=== PATIENT | male | born 1945 | race Caucasian/White ===

== ENCOUNTER 2017-04-05 07:48 | Inpatient (IN) | payer MEDICARE ==
[~2017-04-05] VITALS: Ht 177.8 cm; Wt 96.6 kg
--- NOTE | 2017-04-05 08:37 | EKG ---
[facility] [address] [place] [address] Test Date: 2017-04-05 Test Time: 08:41:16 Pat Name: MARIANNE HAND Department: Room: Gender: Baseball Coach: : 1945 Requested By: COLLETTE FLORES Order Number: [id number] Reading MD: Kaushik Hameed Measurements Intervals Lutz Rate: 99 P: 50 FL: 154 QRS: 38 QRSD: 96 T: 43 QT: 350 QTc: 455 Interpretive Statements SINUS RHYTHM VENTRICULAR PREMATURE COMPLEX(ES) LEFT ATRIAL ABNORMALITY ABNORMAL ECG RI6.01 No previous ECG available for comparison Electronically Signed On 04-14-2017 12:50:20 CDT by Kaushik Hameed
[2017-04-05] MEDS ORDERED: LIDOCAINE 2% PF Vial for OR 5 ML VIAL. ONE (08:56)
[2017-04-05] MEDS ORDERED: PROPOFOL 40 ML IV ONE (08:56)
[2017-04-05] MEDS ORDERED: ePHEDrine PF IN SALINE 50 MG/5 ML DISP.SYRIN IV ONE (08:57)
--- NOTE | 2017-04-05 09:01 | RAD ---
EXAM: Chest, single view. HISTORY: Shortness of breath. COMPARISON: None. FINDINGS: A frontal view of the chest is obtained. There is diffuse right lower lobe predominant interstitial infiltrate. There is a suspected small right pleural effusion. There is right hemithorax volume loss with rightward mediastinal shift. The heart is mildly enlarged. There is no pneumothorax. IMPRESSION: 1. Diffuse interstitial infiltrate likely due to congestion. The possibility of superimposed right lower lobe pneumonic infiltrate is not excluded. 2. Suspected small right pleural effusion. 3. Suspected mild right hemithorax volume loss. 4. Mild cardiomegaly.
[2017-04-05] MEDS ORDERED: OMEG1CAP6 PO (11:26)
[2017-04-05] MEDS ORDERED: ASPI325T8 PO (11:26)
[2017-04-05] MEDS ORDERED: ATOR20TA58 PO (11:26)
[2017-04-05] MEDS ORDERED: AMLO10TA2 PO (11:26)
[2017-04-05] MEDS ORDERED: ALPR0.5T6 PO (11:26)
[2017-04-05] MEDS ORDERED: ROPI1TAB PO (11:26)
[2017-04-05] MEDS ORDERED: CLON0.5T3 PO (11:26)
[2017-04-05] MEDS ORDERED: ZOLP5TAB5 PO (11:26)
[2017-04-05] MEDS ORDERED: LISI40TA PO (11:26)
[2017-04-05] MEDS ORDERED: MONT10TA6 PO (11:26)
[2017-04-05] MEDS ORDERED: SERT50TA PO (11:26)
[2017-04-05] MEDS ORDERED: MIRT30TA3 PO (11:26)
[2017-04-05 12:32] VITALS: BP 134/81
[2017-04-05] MEDS ORDERED: 0.9 % SODIUM CHLORIDE 10 ML DISP.SYRIN. IV PRN (14:30)
[2017-04-05] MEDS ORDERED: ONDANSETRON PF 4 MG/2 ML VIAL. IV PRN (14:30)
[2017-04-05] MEDS ORDERED: rOPINIRole 1 MG TABLET. PO PRN (14:30)
[2017-04-05] MEDS ORDERED: ACETAMINOPHEN 325 MG TABLET. PO PRN (14:30)
[2017-04-05] MEDS: MIRTAZAPINE 15 MG TABLET PO SCH ×2 (15:00→15:58)
--- NOTE | 2017-04-05 15:34 | PDOC2 ---
CARDIAC CONSULT DATE OF CONSULT Date of Consult DATE: 04/05/17 TIME: 15:32 REASON FOR CONSULT Reason for Consult: Arrhythmia REFERRING PHYSICIAN Referring Physician: Fly SOURCE Source: Chart review, Patient HISTORY OF PRESENT ILLNESS HISTORY OF PRESENT ILLNESS This is a pleasant 71 yo male admitted for noted fast HR prior to colonoscopy. Per review he was noted with possible AFIB but per my review it appears to be PSVT otherwise SR. Reports no prior hx of arrhythmia. No CAD in the past with remote stress test. Denies any COPD but positive for clubbing and 50 pk yr tobacco use. He also has hx of KAYE features such as PND and snoring per his previous . He has preDM, HLP, HTN and takes daily ASA. He had bowel prep last night for routine colonoscopy and was postponed due to his rhyhtm disturbance. In the last yr he has been steadily getting WEBBER and sometimes with palpitations and dizziness but no CP, nausea, or diaphoresis. He is compliant with his medications otherwise. PAST MEDICAL HISTORY Cardiovascular: HTN, Hyperlipidemia Pulmonary: No pertinent hx CENTRAL NERVOUS SYSTEM: Periperal neuropathy, Other GI: Other (colon polyps) Heme/Onc: No pertinent hx Hepatobiliary: No pertinent hx Psych: Anxiety, Depression (PTSD) Musculoskeletal: Osteoarthritis Rheumatologic: No pertinent hx Infectious disease: No pertinent hx ENT: Other (cataract) Renal/: No pertinent hx Endocrine: Diabetes (pre) Dermatology: No pertinent hx PAST SURGICAL HISTORY Past Surgical History: Tonsillectomy, Other (LRTC repair) FAMILY HISTORY Family History: Coronary Artery Disease (father) SOCIAL HISTORY Smoke: 1 pack per day ALCOHOL: none Drugs: None Lives: with Family ALLERGIES ALLERGIES: Coded Allergies: Penicillins (Verified Allergy, Severe, 04/04/17) bupropion (Verified Allergy, Intermediate, RESTLESS LEG, 04/05/17) buspirone (Verified Allergy, Intermediate, RESTLESS LEG, 04/05/17) escitalopram (Verified Allergy, Intermediate, RESTLESS LEG, 04/05/17) fluticasone (Verified Allergy, Intermediate, RESTLESS LEG, 04/05/17) mirtazapine (Verified Allergy, Intermediate, RESTLESS LEG, 04/05/17) nortriptyline (Verified Allergy, Intermediate, RESTLESS LEG, 04/05/17) oxycodone (Verified Allergy, Intermediate, RESTLESS LEG, 04/05/17) paroxetine (Verified Allergy, Intermediate, RESTLESS LEG, 04/05/17) sertraline (Verified Allergy, Intermediate, RESTLESS LEG, 04/05/17) venlafaxine (Verified Allergy, Intermediate, RESTLESS LEG, 04/05/17) fluoxetine (Verified Allergy, Unknown, RESTLESS LEG, 04/05/17) Uncoded Allergies: FLUOSETINE/OLENZAPINE (Allergy, Intermediate, RESTLESS LEG, 04/05/17) ROS Review of System 14 point ROS evaluated with pertinent positives noted per HPI PHYSICAL EXAM General: Alert, Oriented X3, Cooperative, No acute distress HEENT: Atraumatic, Mucous membr. moist/pink Lungs: Other (diminished bases) Heart: Regular rate (SR), Normal S1, Normal S2, Other (distant heart sounds) Extremities: No cyanosis, No edema Skin: No breakdown, No significant lesion Neuro: Normal speech, Sensation intact Psych/Mental Status: Mental status NL, Mood NL MUSCULOSKELETAL: Osteoarthritic changes both hands VITALS VITALS Vital Signs Date Time Temp Pulse Resp B/P (MAP) Pulse Ox O2 Delivery O2 Flow Rate FiO2 04/05/17 12:32 97.8 90 16 134/81 (98) 94 Nasal Cannula 2.0 97.8 LABS Lab: Laboratory Tests Test 04/05/17 14:50 Troponin I Quantitative < 0.017 ng/mL (0.000-0.055) ASSESSMENT/PLAN ASSESSMENT/PLAN 1. 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 No AFIB. Suspect due to F & E shifts. 2. WEBBER/Palpitations: suspect undiagnosed COPD with associated clubbing 3. Suspecting KAYE and pulmonary HTN 4. Hx of colon polyps: bowel prep for outpt colonoscopy postponed due to arrhythmia 5. HTN: controlled 6. HLP Recommendations 1. Maintain adequate po hydration, replace lytes as warranted 2. CMP, Mg, TSH, and lipids today 3. TTE 4. Continue home BP meds. 5. Discussed treament plan and will do outpt event monitoring. 6. Monitor tele overnight, continue with secondary prevention 7. COPD mgmt per PCP Problems: PALMA EPPS APRN Apr 05, 2017 15:34
[2017-04-05] MEDS: ASPIRIN CHEWABLE 81 MG TABLET. PO SCH (15:50)
[2017-04-05] MEDS: IV 1/2 NORMAL SALINE 1,000 ML IV SCH (15:50)
[2017-04-05] MEDS: OMEGA-3 FATTY ACIDS/FISH OIL 1,000 MG CAPSULE. PO SCH (15:54)
[2017-04-05] MEDS: amLODIPine BESYLATE 10 MG TABLET PO SCH (15:56)
[2017-04-05] MEDS: LISINOPRIL 40 MG TABLET. PO SCH (15:58)
[2017-04-05] MEDS: NICOTINE 21MG PATCH. TD SCH (15:59)
[2017-04-05] MEDS: SERTRALINE 50 MG TABLET. PO SCH (15:59)
[2017-04-05] MEDS: ENOXAPARIN 40 MG/0.4 ML SYRINGE. SQ SCH (15:59)
[2017-04-05] MEDS: ALPRAZolam 0.5 MG TABLET PO PRN (16:07)
[2017-04-05 17:46] LABS: BASO # 0.1 x10^3/uL (0.0-0.2); BASO % 1 % (0-3); EOS % 2 % (0-3); HEMOGLOBIN 16.3 g/dL (13.0-17.5); LYMPH # 4.2 x10^3/uL (1.0-4.8); LYMPH % 38 % (24-48); MEAN CORPUSCULAR HEMOGLOBIN 31 pg (25-35); MEAN CORPUSCULAR HGB CONC 33 g/dL (31-37); MEAN CORPUSCULAR VOLUME 93 fL (79-100); MONO % 10 % (0-9); NEUT % 50 % (31-73); PLATELET COUNT 214 x10^3/uL (140-400); RED BLOOD COUNT 5.28 x10^6/uL (4.30-5.70); RED CELL DISTRIBUTION WIDTH 14.2 % (11.5-14.5); WHITE BLOOD COUNT 10.9 x10^3/uL (4.0-11.0)
[2017-04-05 17:57] LABS: ALBUMIN 3.1 g/dL (3.4-5.0); ALBUMIN/GLOBULIN RATIO 0.7 (1.0-1.7); CALCIUM 8.8 mg/dL (8.5-10.1); CREATININE 1.2 mg/dL (0.7-1.3); GFR 59.5; MAGNESIUM 1.8 mg/dL (1.8-2.4); POTASSIUM 3.4 mmol/L (3.5-5.1); TOTAL BILIRUBIN 0.6 mg/dL (0.2-1.0); TOTAL PROTEIN 7.5 g/dL (6.4-8.2)
[2017-04-05 17:59] LABS: CHOLESTEROL/HDL RATIO 4.6
[2017-04-05] MEDS ORDERED: POTASSIUM CHLORIDE 20 MEQ TABLET.ER. PO ONE (18:30)
[2017-04-05 19:17] VITALS: BP 116/70
--- NOTE | 2017-04-05 19:54 | HP ---
ADMIT DATE: 04/05/2017 CHIEF COMPLAINT: Arrhythmia. HISTORY OF PRESENT ILLNESS: The patient is a 71-year-old gentleman who was scheduled to undergo a routine colonoscopy today. However, in the endoscopy suite, he was noted to have tachycardia, initially thought to be AFib. He was therefore direct admitted to the medical service for further workup and monitoring. The patient relates that he never had any heart issues, although does have hypertension and hyperlipidemia. He himself is unable to tell. Denies any palpitations, shortness of breath, chest pain or other symptoms. He does have positive COPD and easily is short of breath as he is continuing to smoke cigarettes. PAST MEDICAL HISTORY: Hypertension, hyperlipidemia, COPD, osteoarthritis, diabetes mellitus, PTSD, depression. FAMILY HISTORY: Positive for CAD in father. SOCIAL HISTORY: Lives with his , continues to smoke 1 pack a day for the past 55 years. Denies any alcohol or drug use. ALLERGIES: Multiple including PENICILLIN, OXYCODONE and pretty much any ANTIDEPRESSANT available. MEDICATIONS: MAR reconciled with home medications. REVIEW OF SYSTEMS: Positive as per HPI. Rest of organ system review is negative. PHYSICAL EXAMINATION: VITAL SIGNS: From today show a blood pressure of 134/81, heart rate of 90, respiratory rate at 16. He is afebrile. GENERAL: This is a 71-year-old gentleman, obese, alert and oriented, no acute distress. HEENT: Shows no scleral icterus. NECK: Supple. LUNGS: Clear with distant breath sounds. HEART: Has regular rate and rhythm without any murmurs. ABDOMEN: Obese, positive bowel sounds, soft, nontender. EXTREMITIES: Show no edema. SKIN: Warm, soft and dry. LABS: Pending. IMAGING: Chest x-ray this morning showed diffuse interstitial infiltrate, likely due to congestion, possibility of right lower lobe pneumonic infiltrate not excluded, small right pleural effusion, mild cardiomegaly. ASSESSMENT AND PLAN: The patient is a 71-year-old gentleman with chronic obstructive pulmonary disease, hypertension, hyperlipidemia who presents with some type of arrhythmia. On my review, it does not appear to be atrial fibrillation; however, we will obtain Cardiology consult BRITNEY. He will be ruled out with serial enzymes and EKG. We will risk stratify with lipid profile as well as hemoglobin A1c. Obtain other labs as well. Echocardiogram and Cardiology consults have been requested. For his diabetes, home medications will be continued as well as insulin sliding scale instituted. The patient more than likely has COPD and is scheduled to follow up with a chest x-ray with his PCP at the [place]. I discussed with him that with his significant smoking history, a low dose CT should be obtained. He is somewhat resistant as he feels that risk of false positive is high. Discussed the implications with him. He apparently has lung disease, underlying as well given the findings on his chest x-ray. He would like to hold off on a CT now and discuss [facility]. Obviously discussed smoking cessation with him at length as well. TUSHAR KAY MD DR: UR/nts JOB#: [id number] / [id number] WILFRIDO Thornton MD MTDD
[2017-04-05] MEDS: IBUPROFEN 400 MG TABLET. PO PRN (20:35)
[2017-04-05] MEDS: ASPIRIN 325 MG TABLET PO SCH (21:22)
[2017-04-05] MEDS: ZOLPIDEM 5 MG TABLET. PO PRN (21:22)
[2017-04-05] MEDS: MONTELUKAST SODIUM 10 MG TABLET. PO SCH (21:22)
[2017-04-05] MEDS: ATORVASTATIN CALCIUM 20 MG TABLET PO SCH (21:22)
[2017-04-05 22:09] VITALS: BP 115/66
[2017-04-06 03:48] VITALS: BP 121/70
[2017-04-06 07:00] VITALS: BP 137/77
[2017-04-06 07:14] LABS: ALBUMIN 2.8 g/dL (3.4-5.0); ALBUMIN/GLOBULIN RATIO 0.7 (1.0-1.7); CALCIUM 8.5 mg/dL (8.5-10.1); CREATININE 1.2 mg/dL (0.7-1.3); GFR 59.5; POTASSIUM 3.7 mmol/L (3.5-5.1); TOTAL BILIRUBIN 0.3 mg/dL (0.2-1.0); TOTAL PROTEIN 7.1 g/dL (6.4-8.2)
[2017-04-06 07:16] LABS: BASO # 0.1 x10^3/uL (0.0-0.2); BASO % 1 % (0-3); EOS % 2 % (0-3); HEMATOCRIT 46.3 % (39.0-53.0); HEMOGLOBIN 15.7 g/dL (13.0-17.5); LYMPH # 3.6 x10^3/uL (1.0-4.8); LYMPH % 37 % (24-48); MEAN CORPUSCULAR HEMOGLOBIN 31 pg (25-35); MEAN CORPUSCULAR HGB CONC 34 g/dL (31-37); MEAN CORPUSCULAR VOLUME 91 fL (79-100); MONO % 11 % (0-9); NEUT % 50 % (31-73); PLATELET COUNT 197 x10^3/uL (140-400); RED BLOOD COUNT 5.07 x10^6/uL (4.30-5.70); RED CELL DISTRIBUTION WIDTH 14.1 % (11.5-14.5)
[2017-04-06] MEDS: NICOTINE 21MG PATCH. TD SCH (08:28)
[2017-04-06] MEDS: SERTRALINE 50 MG TABLET. PO SCH (08:30)
[2017-04-06] MEDS: LISINOPRIL 40 MG TABLET. PO SCH (08:30)
[2017-04-06] MEDS: OMEGA-3 FATTY ACIDS/FISH OIL 1,000 MG CAPSULE. PO SCH (08:31)
[2017-04-06] MEDS: MIRTAZAPINE 15 MG TABLET PO SCH (08:31)
[2017-04-06] MEDS: amLODIPine BESYLATE 10 MG TABLET PO SCH (08:31)
[2017-04-06] MEDS: ASPIRIN CHEWABLE 81 MG TABLET. PO SCH (08:35)
[2017-04-06 11:00] VITALS: BP 103/61
--- NOTE | 2017-04-06 11:47 | PDOC ---
CARDIO Progress Notes Date and Time Date of Service 04/06/2017 Time of Evaluation 1040 Subjective Subjective: No Chest Pain, No shortness of breath, No Palpitations, No Dizziness Vitals Vitals Vital Signs Date Time Temp Pulse Resp B/P (MAP) Pulse Ox O2 Delivery O2 Flow Rate FiO2 04/06/17 08:31 88 137/77 04/06/17 08:00 Nasal Cannula 2.0 04/06/17 07:00 98.3 19 93 98.3 Weight Weight [ ] Laboratory Labs Laboratory Tests Test 04/05/17 14:50 04/05/17 17:25 04/05/17 20:25 04/06/17 04:50 White Blood Count 10.9 x10^3/uL (4.0-11.0) 10.0 x10^3/uL (4.0-11.0) Red Blood Count 5.28 x10^6/uL (4.30-5.70) 5.07 x10^6/uL (4.30-5.70) Hemoglobin 16.3 g/dL (13.0-17.5) 15.7 g/dL (13.0-17.5) Hematocrit 49.0 % (39.0-53.0) 46.3 % (39.0-53.0) Mean Corpuscular Volume 93 fL (79-100) 91 fL (79-100) Mean Corpuscular Hemoglobin 31 pg (25-35) 31 pg (25-35) Mean Corpuscular Hemoglobin Concent 33 g/dL (31-37) 34 g/dL (31-37) Red Cell Distribution Width 14.2 % (11.5-14.5) 14.1 % (11.5-14.5) Platelet Count 214 x10^3/uL (140-400) 197 x10^3/uL (140-400) Neutrophils (%) (Auto) 50 % (31-73) 50 % (31-73) Lymphocytes (%) (Auto) 38 % (24-48) 37 % (24-48) Monocytes (%) (Auto) 10 % (0-9) 11 % (0-9) Eosinophils (%) (Auto) 2 % (0-3) 2 % (0-3) Basophils (%) (Auto) 1 % (0-3) 1 % (0-3) Neutrophils # (Auto) 5.4 x10^3uL (1.8-7.7) 4.9 x10^3uL (1.8-7.7) Lymphocytes # (Auto) 4.2 x10^3/uL (1.0-4.8) 3.6 x10^3/uL (1.0-4.8) Monocytes # (Auto) 1.1 x10^3/uL (0.0-1.1) 1.1 x10^3/uL (0.0-1.1) Eosinophils # (Auto) 0.2 x10^3/uL (0.0-0.7) 0.2 x10^3/uL (0.0-0.7) Basophils # (Auto) 0.1 x10^3/uL (0.0-0.2) 0.1 x10^3/uL (0.0-0.2) Sodium Level 139 mmol/L (136-145) 142 mmol/L (136-145) Potassium Level 3.4 mmol/L (3.5-5.1) 3.7 mmol/L (3.5-5.1) Chloride Level 103 mmol/L (98-107) 105 mmol/L (98-107) Carbon Dioxide Level 22 mmol/L (21-32) 28 mmol/L (21-32) Anion Gap 14 (6-14) 9 (6-14) Blood Urea Nitrogen 13 mg/dL (8-26) 18 mg/dL (8-26) Creatinine 1.2 mg/dL (0.7-1.3) 1.2 mg/dL (0.7-1.3) Estimated GFR (Cockcroft-Gault) 59.5 59.5 BUN/Creatinine Ratio 11 (6-20) 15 (6-20) Glucose Level 113 mg/dL (70-99) 111 mg/dL (70-99) Calcium Level 8.8 mg/dL (8.5-10.1) 8.5 mg/dL (8.5-10.1) Magnesium Level 1.8 mg/dL (1.8-2.4) 2.0 mg/dL (1.8-2.4) Total Bilirubin 0.6 mg/dL (0.2-1.0) 0.3 mg/dL (0.2-1.0) Aspartate Amino Transf (AST/SGOT) 29 U/L (15-37) 30 U/L (15-37) Alanine Aminotransferase (ALT/SGPT) 25 U/L (16-63) 27 U/L (16-63) Alkaline Phosphatase 109 U/L (46-116) 102 U/L (46-116) Troponin I Quantitative < 0.017 ng/mL (0.000-0.055) < 0.017 ng/mL (0.000-0.055) < 0.017 ng/mL (0.000-0.055) Total Protein 7.5 g/dL (6.4-8.2) 7.1 g/dL (6.4-8.2) Albumin 3.1 g/dL (3.4-5.0) 2.8 g/dL (3.4-5.0) Albumin/Globulin Ratio 0.7 (1.0-1.7) 0.7 (1.0-1.7) Triglycerides Level 160 mg/dL (0-150) Cholesterol Level 156 mg/dL (0-200) LDL Cholesterol, Calculated 90 mg/dL (0-100) VLDL Cholesterol, Calculated 32 mg/dL (0-40) Non-HDL Cholesterol Calculated 122 mg/dL (0-129) HDL Cholesterol 34 mg/dL (40-60) Cholesterol/HDL Ratio 4.6 Thyroid Stimulating Hormone (TSH) 1.307 uIU/mL (0.358-3.74) Physical Exam HEENT: Neck Supple W Full Motion Chest: Symmetric LUNGS: Other (diminished bases) Heart: S1S2, RRR (SR) Abdomen: Soft N/T Extremities: No Calf Tenderness Neurology: alert, oriented, follow commands Assessment Assessment 1. Arrhythmia: Burst of PSVT yesterday. Last night brief bursts of RVR atrial flutter 2. WEBBER/Palpitations: suspect undiagnosed COPD with associated clubbing with associated arrhythmia 3. Suspecting KAYE and pulmonary HTN 4. Hx of colon polyps: bowel prep for outpt colonoscopy postponed due to arrhythmia 5. HTN: controlled 6. HLP Recommendations 1. DC norvasc and start on cardizem CD 2. Continue on lisinopril and may add HCTZ if BP remains labile. 3. Pt refusing TTE citing possibly not covered by insurance. Discussed treatment and diagnostic plan and wishes to speak with CM first. 4. Also discussed ASA vs NOAC but at this time hesitant about NOAC due to again insurance coverage. Will continue with full dose ASA for now and will note need once outpt event monitor (if pt agrees) is finalized to note AFIB burden. 5. Also [facility]. Again will consult CM. 6. Continue with secondary prevention 7. COPD mgmt per PCP PALMA EPPS PEDIATRIC ANESTHESIOLOGIST Apr 06, 2017 11:47
--- NOTE | 2017-04-06 12:07 | PDOC ---
PROGRESS NOTES Chief Complaint Chief Complaint 1. 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 No AFIB. Suspect due to F & E shifts. 2. WEBBER/Palpitations: suspect undiagnosed COPD with associated clubbing 3. Suspecting KAYE and pulmonary HTN 4. Hx of colon polyps: bowel prep for outpt colonoscopy postponed due to arrhythmia 5. HTN: controlled 6. HLP History of Present Illness History of Present Illness WAnts to [place] [facility] [place] [facility] [place] Otherwise, he would be willing to stay CAse mx looking into this Dw cards, also needs event monitor arranged as OP Pt called himself MEDICARE few mins ago and they could not guaranteee 100% coverage PLAN: Awaiting case mx to sort this stuff out Otherwise echo and life vest? outpt event monitor planned No CP or SOA currently, VS ok Dw RN Kimmie Vitals Vitals Vital Signs Date Time Temp Pulse Resp B/P (MAP) Pulse Ox O2 Delivery O2 Flow Rate FiO2 04/06/17 11:00 98.1 89 17 103/61 (75) 94 Nasal Cannula 2.0 98.1 Physical Exam General: Alert, Oriented X3, Cooperative, No acute distress Heart: Regular rate (SR), Normal S1, Normal S2, Other (distant heart sounds) Extremities: No cyanosis, No edema Skin: No breakdown, No significant lesion Labs LABS Laboratory Tests Test 04/05/17 14:50 04/05/17 17:25 04/05/17 20:25 04/06/17 04:50 White Blood Count 10.9 x10^3/uL (4.0-11.0) 10.0 x10^3/uL (4.0-11.0) Red Blood Count 5.28 x10^6/uL (4.30-5.70) 5.07 x10^6/uL (4.30-5.70) Hemoglobin 16.3 g/dL (13.0-17.5) 15.7 g/dL (13.0-17.5) Hematocrit 49.0 % (39.0-53.0) 46.3 % (39.0-53.0) Mean Corpuscular Volume 93 fL (79-100) 91 fL (79-100) Mean Corpuscular Hemoglobin 31 pg (25-35) 31 pg (25-35) Mean Corpuscular Hemoglobin Concent 33 g/dL (31-37) 34 g/dL (31-37) Red Cell Distribution Width 14.2 % (11.5-14.5) 14.1 % (11.5-14.5) Platelet Count 214 x10^3/uL (140-400) 197 x10^3/uL (140-400) Neutrophils (%) (Auto) 50 % (31-73) 50 % (31-73) Lymphocytes (%) (Auto) 38 % (24-48) 37 % (24-48) Monocytes (%) (Auto) 10 % (0-9) 11 % (0-9) Eosinophils (%) (Auto) 2 % (0-3) 2 % (0-3) Basophils (%) (Auto) 1 % (0-3) 1 % (0-3) Neutrophils # (Auto) 5.4 x10^3uL (1.8-7.7) 4.9 x10^3uL (1.8-7.7) Lymphocytes # (Auto) 4.2 x10^3/uL (1.0-4.8) 3.6 x10^3/uL (1.0-4.8) Monocytes # (Auto) 1.1 x10^3/uL (0.0-1.1) 1.1 x10^3/uL (0.0-1.1) Eosinophils # (Auto) 0.2 x10^3/uL (0.0-0.7) 0.2 x10^3/uL (0.0-0.7) Basophils # (Auto) 0.1 x10^3/uL (0.0-0.2) 0.1 x10^3/uL (0.0-0.2) Sodium Level 139 mmol/L (136-145) 142 mmol/L (136-145) Potassium Level 3.4 mmol/L (3.5-5.1) 3.7 mmol/L (3.5-5.1) Chloride Level 103 mmol/L (98-107) 105 mmol/L (98-107) Carbon Dioxide Level 22 mmol/L (21-32) 28 mmol/L (21-32) Anion Gap 14 (6-14) 9 (6-14) Blood Urea Nitrogen 13 mg/dL (8-26) 18 mg/dL (8-26) Creatinine 1.2 mg/dL (0.7-1.3) 1.2 mg/dL (0.7-1.3) Estimated GFR (Cockcroft-Gault) 59.5 59.5 BUN/Creatinine Ratio 11 (6-20) 15 (6-20) Glucose Level 113 mg/dL (70-99) 111 mg/dL (70-99) Calcium Level 8.8 mg/dL (8.5-10.1) 8.5 mg/dL (8.5-10.1) Magnesium Level 1.8 mg/dL (1.8-2.4) 2.0 mg/dL (1.8-2.4) Total Bilirubin 0.6 mg/dL (0.2-1.0) 0.3 mg/dL (0.2-1.0) Aspartate Amino Transf (AST/SGOT) 29 U/L (15-37) 30 U/L (15-37) Alanine Aminotransferase (ALT/SGPT) 25 U/L (16-63) 27 U/L (16-63) Alkaline Phosphatase 109 U/L (46-116) 102 U/L (46-116) Troponin I Quantitative < 0.017 ng/mL (0.000-0.055) < 0.017 ng/mL (0.000-0.055) < 0.017 ng/mL (0.000-0.055) Total Protein 7.5 g/dL (6.4-8.2) 7.1 g/dL (6.4-8.2) Albumin 3.1 g/dL (3.4-5.0) 2.8 g/dL (3.4-5.0) Albumin/Globulin Ratio 0.7 (1.0-1.7) 0.7 (1.0-1.7) Triglycerides Level 160 mg/dL (0-150) Cholesterol Level 156 mg/dL (0-200) LDL Cholesterol, Calculated 90 mg/dL (0-100) VLDL Cholesterol, Calculated 32 mg/dL (0-40) Non-HDL Cholesterol Calculated 122 mg/dL (0-129) HDL Cholesterol 34 mg/dL (40-60) Cholesterol/HDL Ratio 4.6 Thyroid Stimulating Hormone (TSH) 1.307 uIU/mL (0.358-3.74) Review of Systems Review of Systems denies 14 pt Comment Review of Relevant I have reviewed the following items fang (where applicable) has been applied. Labs Laboratory Tests Test 04/05/17 14:50 04/05/17 17:25 04/05/17 20:25 04/06/17 04:50 White Blood Count 10.9 x10^3/uL (4.0-11.0) 10.0 x10^3/uL (4.0-11.0) Red Blood Count 5.28 x10^6/uL (4.30-5.70) 5.07 x10^6/uL (4.30-5.70) Hemoglobin 16.3 g/dL (13.0-17.5) 15.7 g/dL (13.0-17.5) Hematocrit 49.0 % (39.0-53.0) 46.3 % (39.0-53.0) Mean Corpuscular Volume 93 fL (79-100) 91 fL (79-100) Mean Corpuscular Hemoglobin 31 pg (25-35) 31 pg (25-35) Mean Corpuscular Hemoglobin Concent 33 g/dL (31-37) 34 g/dL (31-37) Red Cell Distribution Width 14.2 % (11.5-14.5) 14.1 % (11.5-14.5) Platelet Count 214 x10^3/uL (140-400) 197 x10^3/uL (140-400) Neutrophils (%) (Auto) 50 % (31-73) 50 % (31-73) Lymphocytes (%) (Auto) 38 % (24-48) 37 % (24-48) Monocytes (%) (Auto) 10 % (0-9) 11 % (0-9) Eosinophils (%) (Auto) 2 % (0-3) 2 % (0-3) Basophils (%) (Auto) 1 % (0-3) 1 % (0-3) Neutrophils # (Auto) 5.4 x10^3uL (1.8-7.7) 4.9 x10^3uL (1.8-7.7) Lymphocytes # (Auto) 4.2 x10^3/uL (1.0-4.8) 3.6 x10^3/uL (1.0-4.8) Monocytes # (Auto) 1.1 x10^3/uL (0.0-1.1) 1.1 x10^3/uL (0.0-1.1) Eosinophils # (Auto) 0.2 x10^3/uL (0.0-0.7) 0.2 x10^3/uL (0.0-0.7) Basophils # (Auto) 0.1 x10^3/uL (0.0-0.2) 0.1 x10^3/uL (0.0-0.2) Sodium Level 139 mmol/L (136-145) 142 mmol/L (136-145) Potassium Level 3.4 mmol/L (3.5-5.1) 3.7 mmol/L (3.5-5.1) Chloride Level 103 mmol/L (98-107) 105 mmol/L (98-107) Carbon Dioxide Level 22 mmol/L (21-32) 28 mmol/L (21-32) Anion Gap 14 (6-14) 9 (6-14) Blood Urea Nitrogen 13 mg/dL (8-26) 18 mg/dL (8-26) Creatinine 1.2 mg/dL (0.7-1.3) 1.2 mg/dL (0.7-1.3) Estimated GFR (Cockcroft-Gault) 59.5 59.5 BUN/Creatinine Ratio 11 (6-20) 15 (6-20) Glucose Level 113 mg/dL (70-99) 111 mg/dL (70-99) Calcium Level 8.8 mg/dL (8.5-10.1) 8.5 mg/dL (8.5-10.1) Magnesium Level 1.8 mg/dL (1.8-2.4) 2.0 mg/dL (1.8-2.4) Total Bilirubin 0.6 mg/dL (0.2-1.0) 0.3 mg/dL (0.2-1.0) Aspartate Amino Transf (AST/SGOT) 29 U/L (15-37) 30 U/L (15-37) Alanine Aminotransferase (ALT/SGPT) 25 U/L (16-63) 27 U/L (16-63) Alkaline Phosphatase 109 U/L (46-116) 102 U/L (46-116) Troponin I Quantitative < 0.017 ng/mL (0.000-0.055) < 0.017 ng/mL (0.000-0.055) < 0.017 ng/mL (0.000-0.055) Total Protein 7.5 g/dL (6.4-8.2) 7.1 g/dL (6.4-8.2) Albumin 3.1 g/dL (3.4-5.0) 2.8 g/dL (3.4-5.0) Albumin/Globulin Ratio 0.7 (1.0-1.7) 0.7 (1.0-1.7) Triglycerides Level 160 mg/dL (0-150) Cholesterol Level 156 mg/dL (0-200) LDL Cholesterol, Calculated 90 mg/dL (0-100) VLDL Cholesterol, Calculated 32 mg/dL (0-40) Non-HDL Cholesterol Calculated 122 mg/dL (0-129) HDL Cholesterol 34 mg/dL (40-60) Cholesterol/HDL Ratio 4.6 Thyroid Stimulating Hormone (TSH) 1.307 uIU/mL (0.358-3.74) Laboratory Tests Test 04/05/17 14:50 04/05/17 17:25 04/05/17 20:25 04/06/17 04:50 White Blood Count 10.9 x10^3/uL (4.0-11.0) 10.0 x10^3/uL (4.0-11.0) Red Blood Count 5.28 x10^6/uL (4.30-5.70) 5.07 x10^6/uL (4.30-5.70) Hemoglobin 16.3 g/dL (13.0-17.5) 15.7 g/dL (13.0-17.5) Hematocrit 49.0 % (39.0-53.0) 46.3 % (39.0-53.0) Mean Corpuscular Volume 93 fL (79-100) 91 fL (79-100) Mean Corpuscular Hemoglobin 31 pg (25-35) 31 pg (25-35) Mean Corpuscular Hemoglobin Concent 33 g/dL (31-37) 34 g/dL (31-37) Red Cell Distribution Width 14.2 % (11.5-14.5) 14.1 % (11.5-14.5) Platelet Count 214 x10^3/uL (140-400) 197 x10^3/uL (140-400) Neutrophils (%) (Auto) 50 % (31-73) 50 % (31-73) Lymphocytes (%) (Auto) 38 % (24-48) 37 % (24-48) Monocytes (%) (Auto) 10 % (0-9) 11 % (0-9) Eosinophils (%) (Auto) 2 % (0-3) 2 % (0-3) Basophils (%) (Auto) 1 % (0-3) 1 % (0-3) Neutrophils # (Auto) 5.4 x10^3uL (1.8-7.7) 4.9 x10^3uL (1.8-7.7) Lymphocytes # (Auto) 4.2 x10^3/uL (1.0-4.8) 3.6 x10^3/uL (1.0-4.8) Monocytes # (Auto) 1.1 x10^3/uL (0.0-1.1) 1.1 x10^3/uL (0.0-1.1) Eosinophils # (Auto) 0.2 x10^3/uL (0.0-0.7) 0.2 x10^3/uL (0.0-0.7) Basophils # (Auto) 0.1 x10^3/uL (0.0-0.2) 0.1 x10^3/uL (0.0-0.2) Sodium Level 139 mmol/L (136-145) 142 mmol/L (136-145) Potassium Level 3.4 mmol/L (3.5-5.1) 3.7 mmol/L (3.5-5.1) Chloride Level 103 mmol/L (98-107) 105 mmol/L (98-107) Carbon Dioxide Level 22 mmol/L (21-32) 28 mmol/L (21-32) Anion Gap 14 (6-14) 9 (6-14) Blood Urea Nitrogen 13 mg/dL (8-26) 18 mg/dL (8-26) Creatinine 1.2 mg/dL (0.7-1.3) 1.2 mg/dL (0.7-1.3) Estimated GFR (Cockcroft-Gault) 59.5 59.5 BUN/Creatinine Ratio 11 (6-20) 15 (6-20) Glucose Level 113 mg/dL (70-99) 111 mg/dL (70-99) Calcium Level 8.8 mg/dL (8.5-10.1) 8.5 mg/dL (8.5-10.1) Magnesium Level 1.8 mg/dL (1.8-2.4) 2.0 mg/dL (1.8-2.4) Total Bilirubin 0.6 mg/dL (0.2-1.0) 0.3 mg/dL (0.2-1.0) Aspartate Amino Transf (AST/SGOT) 29 U/L (15-37) 30 U/L (15-37) Alanine Aminotransferase (ALT/SGPT) 25 U/L (16-63) 27 U/L (16-63) Alkaline Phosphatase 109 U/L (46-116) 102 U/L (46-116) Troponin I Quantitative < 0.017 ng/mL (0.000-0.055) < 0.017 ng/mL (0.000-0.055) < 0.017 ng/mL (0.000-0.055) Total Protein 7.5 g/dL (6.4-8.2) 7.1 g/dL (6.4-8.2) Albumin 3.1 g/dL (3.4-5.0) 2.8 g/dL (3.4-5.0) Albumin/Globulin Ratio 0.7 (1.0-1.7) 0.7 (1.0-1.7) Triglycerides Level 160 mg/dL (0-150) Cholesterol Level 156 mg/dL (0-200) LDL Cholesterol, Calculated 90 mg/dL (0-100) VLDL Cholesterol, Calculated 32 mg/dL (0-40) Non-HDL Cholesterol Calculated 122 mg/dL (0-129) HDL Cholesterol 34 mg/dL (40-60) Cholesterol/HDL Ratio 4.6 Thyroid Stimulating Hormone (TSH) 1.307 uIU/mL (0.358-3.74) Medications Current Medications Propofol 40 ml @ As Directed STK-MED ONCE IV ; Start 04/05/17 at 08:56; Stop at 08:57; Status DC Lidocaine HCl (Lidocaine Pf 2% Vial) 5 ml STK-MED ONCE .ROUTE ; Start 04/05/17 at 08:56; Stop 04/05/17 at 08:57; Status DC Ephedrine Sulfate 50 mg STK-MED ONCE IV ; Start 04/05/17 at 08:57; Stop at 08:58; Status DC Aspirin (Children'S Aspirin) 81 mg DAILYWBKFT PO Last administered on 08:35; Start 04/05/17 at 15:00 Acetaminophen (Tylenol) 650 mg PRN Q6HRS PRN PO MILD PAIN / TEMP; Start at 14:30 Ondansetron HCl (Zofran) 4 mg PRN Q6HRS PRN IV NAUSEA/VOMITING; Start 04/05/17 at 14:30 Enoxaparin Sodium (Lovenox 40mg Syringe) 40 mg Q24H SQ Last administered on 15:59; Start 04/05/17 at 15:00 Sodium Chloride (Normal Saline Flush) 3 ml QSHIFT PRN IV AFTER MEDS AND BLOOD DRAWS; Start 04/05/17 at 14:30 Sodium Chloride 1,000 ml @ 30 mls/hr Q24H IV Last administered on 04/05/17 15 :50; Start 04/05/17 at 14:20 Alprazolam (Xanax) 0.5 mg PRN Q6HRS PRN PO ANXIETY / AGITATION Last administered on 04/05/17 16:07; Start 04/05/17 at 14:30 Amlodipine Besylate (Norvasc) 10 mg DAILY PO Last administered on 04/06/17 08: 31; Start 04/05/17 at 15:00; Stop 04/06/17 at 11:48; Status DC Aspirin (Shiela Aspirin) 325 mg HS PO Last administered on 04/05/17 21:22; Start 04/05/17 at 21:00 Atorvastatin Calcium (Lipitor) 20 mg HS PO Last administered on 04/05/17 21:22 ; Start 04/05/17 at 21:00 Lisinopril (Prinivil) 40 mg DAILY PO Last administered on 04/06/17 08:30; Start 04/05/17 at 15:00 Montelukast Sodium (Singulair) 10 mg HS PO Last administered on 04/05/17 21:22 ; Start 04/05/17 at 21:00 Fish Oil (Fish Oil) 1,000 mg DAILY PO Last administered on 04/06/17 08:31; Start 04/05/17 at 15:00 Ropinirole HCl (Requip) 2 mg PRN QHS PRN PO RESTLESS LEGS Last administered on 04/05/17 21:22; Start 04/05/17 at 14:30 Sertraline HCl (Zoloft) 50 mg DAILY PO Last administered on 04/06/17 08:30; Start 04/05/17 at 15:00 Zolpidem Tartrate (Ambien) 5 mg PRN QHS PRN PO INSOMNIA Last administered on 21:22; Start 04/05/17 at 14:30 Mirtazapine (Remeron) 15 mg DAILY PO Last administered on 04/06/17 08:31; Start 04/05/17 at 15:00 Nicotine (Nicoderm Cq 21mg) 1 patch DAILY TD Last administered on 04/06/17 08: 28; Start 04/05/17 at 15:00 Potassium Chloride (Klor-Con) 40 meq 1X ONCE PO Last administered on 18:38; Start 04/05/17 at 18:30; Stop 04/05/17 at 18:31; Status DC Ibuprofen (Motrin) 800 mg PRN Q6HRS PRN PO INFLAMMATION Last administered on 20:35; Start 04/05/17 at 20:30 Diltiazem HCl (Cardizem 24hr Cd) 180 mg DAILY PO ; Start 04/06/17 at 12:00 Active Scripts Active Reported Fish Oil 1,000 Mg Capsule (Marcellus-3 Fatty Acids/Fish Oil) 1 Each Capsule 1 Each PO Aspirin 325 Mg Tablet 325 Mg PO HS Zolpidem Tartrate 5 Mg Tablet 5 Mg PO PRN QHS PRN Alprazolam 0.5 Mg Tablet 0.5 Mg PO PRN Q6HRS PRN Zoloft (Sertraline Hcl) 50 Mg Tablet 50 Mg PO DAILY Requip (Ropinirole Hcl) 1 Mg Tablet 2 Mg PO HS PRN Singulair Tablet (Montelukast Sodium) 10 Mg Tablet 10 Mg PO HS Mirtazapine 30 Mg Tablet 30 Mg PO DAILY Lisinopril 40 Mg Tablet 40 Mg PO DAILY Clonazepam 0.5 Mg Tablet 1 Tab PO DAILY Atorvastatin Calcium 20 Mg Tablet 20 Mg PO HS Amlodipine Besylate 10 Mg Tablet 10 Mg PO DAILY Vitals/I & O Vital Sign - Last 24 Hours 04/05/17 04/05/17 04/05/17 04/05/17 12:32 15:56 15:58 19:17 Temp 97.8 99.6 97.8 99.6 Pulse 90 86 83 98 Resp 16 18 B/P (MAP) 134/81 (98) 142/80 142/80 116/70 (85) Pulse Ox 94 92 O2 Delivery Nasal Cannula Nasal Cannula O2 Flow Rate 2.0 2.0 04/05/17 04/05/17 04/06/17 04/06/17 20:00 22:09 03:48 07:00 Temp 98.2 97.1 98.3 98.2 97.1 98.3 Pulse 98 89 88 Resp 18 18 19 B/P (MAP) 115/66 (82) 121/70 (87) 137/77 (97) Pulse Ox 92 91 93 O2 Delivery Nasal Cannula Nasal Cannula Nasal Cannula Nasal Cannula O2 Flow Rate 2.0 2.0 2.0 2.0 04/06/17 04/06/17 04/06/17 04/06/17 08:00 08:30 08:31 11:00 Temp 98.1 98.1 Pulse 88 88 89 Resp 17 B/P (MAP) 137/77 137/77 103/61 (75) Pulse Ox 94 O2 Delivery Nasal Cannula Nasal Cannula O2 Flow Rate 2.0 2.0 ELVER GRAY MD Apr 06, 2017 12:07
[2017-04-06] MEDS: ENOXAPARIN 40 MG/0.4 ML SYRINGE. SQ SCH (14:05)
[2017-04-06] MEDS: IV 1/2 NORMAL SALINE 1,000 ML IV SCH (14:20)
[2017-04-06 15:00] VITALS: BP 109/66
[2017-04-06 19:12] VITALS: BP 104/61
[2017-04-06] MEDS: ATORVASTATIN CALCIUM 20 MG TABLET PO SCH (20:10)
[2017-04-06] MEDS: MONTELUKAST SODIUM 10 MG TABLET. PO SCH (20:10)
[2017-04-06] MEDS: ASPIRIN 325 MG TABLET PO SCH (20:11)
[2017-04-06] MEDS: ZOLPIDEM 5 MG TABLET. PO PRN (20:16)
[2017-04-06] MEDS: ALPRAZolam 0.5 MG TABLET PO PRN (20:20)
[2017-04-06 22:53] VITALS: BP 111/66
[2017-04-07 02:56] VITALS: BP 121/68
[2017-04-07 07:00] VITALS: BP 115/66
[2017-04-07] MEDS: ASPIRIN CHEWABLE 81 MG TABLET. PO SCH (08:00)
[2017-04-07] MEDS: OMEGA-3 FATTY ACIDS/FISH OIL 1,000 MG CAPSULE. PO SCH (09:00)
[2017-04-07] MEDS: SERTRALINE 50 MG TABLET. PO SCH (09:00)
[2017-04-07] MEDS: MIRTAZAPINE 15 MG TABLET PO SCH (09:00)
[2017-04-07] MEDS: LISINOPRIL 40 MG TABLET. PO SCH (09:00)
[2017-04-07] MEDS ORDERED: REGADENOSON 0.4 MG/5 ML DISP.SYRIN. IV ONE ×3 (09:45→14:15)
[2017-04-07 11:00] VITALS: BP 118/68
[2017-04-07] MEDS: NICOTINE 21MG PATCH. TD SCH (11:07)
--- NOTE | 2017-04-07 11:20 | CARD ---
APPROVED REPORT EXAM: Two-dimensional and M-mode echocardiogram with Doppler and color Doppler. Other Information Quality : FairHR: 87bpm Rhythm : Atrial Flutter INDICATION Atrial Fibrillation RISK FACTORS Smoking 2D DIMENSIONS RVDd2.6 (2.9-3.5cm)Left Atrium(2D)3.8 (1.6-4.0cm) IVSd1.2 (0.7-1.1cm)Aortic Root(2D)3.2 (2.0-3.7cm) LVDd5.1 (3.9-5.9cm)LVOT Diameter2.6 (1.8-2.4cm) PWd1.2 (0.7-1.1cm)LVDs4.1 (2.5-4.0cm) FS (%) 20.6 %SV52.0 ml LVEF(%)41.8 (>50%) Aortic Valve AoV Peak Marcell.122.8cm/sAoV VTI19.5cm AO Peak GR.6.0mmHgLVOT Peak Marcell.88.4cm/s AO Mean GR.3mmHgAVA (VMAX)3.74cm2 Mitral Valve MV E Sqqlqstn78.9cm/sMV E Peak Gr.3mmHg MV DECEL [id number] A Seqksrou91.5cm/s MV E Mean Gr.1mmHgE/A Ratio0.8 MV A [id number] LEFT VENTRICLE The left ventricle is normal size. There is mild concentric left ventricular hypertrophy. Suspect mil d LV dysfunction. Difficult visualization due to suboptimal images. EF estimated around 40-45% There is mild to moderate global hypokinesis of the left ventricle. Septal motion consistent with conductio n abnormality. Transmitral Doppler flow pattern is Grade I-abnormal relaxation pattern. No left ventr icle thrombus noted on this study. RIGHT VENTRICLE The right ventricle is normal size. There is normal right ventricular wall thickness. The right ventr icular systolic function is normal. ATRIA The left atrium is mildly dilated. The right atrium size is normal. The interatrial septum is intact with no evidence for an atrial septal defect or patent foramen ovale as noted on 2-D or Doppler imagi ng. AORTIC VALVE The aortic valve is not well visualized but appears mildly calcified and opens adequately. Doppler an d Color Flow revealed no significant aortic regurgitation. There is no significant aortic valvular st enosis. MITRAL VALVE The mitral valve leaflets are mildly thickened. There is no evidence of mitral valve prolapse. There is no mitral valve stenosis. Doppler and Color Flow revealed no mitral valve regurgitation noted. TRICUSPID VALVE Doppler and Color Flow revealed no tricuspid valve regurgitation noted. There is no pulmonary hyperte nsion. PULMONIC VALVE The pulmonary valve is obscured, unable to assess. GREAT VESSELS The aortic root is normal in size. The ascending aorta is normal in size. The pulmonary artery is obs cured, unable to assess. The IVC is normal in size and collapses >50% with inspiration. PERICARDIAL EFFUSION There is no evidence of significant pericardial effusion. Critical Notification Critical Value: No <Conclusion> There is mild to moderate global hypokinesis of the left ventricle. Septal motion consistent with con duction abnormality. Suspect mild LV dysfunction. Difficult visualization due to suboptimal images. EF estimated around 40 -45%
--- NOTE | 2017-04-07 11:48 | PDOC ---
PROGRESS NOTES Chief Complaint Chief Complaint 1. 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 No AFIB. Suspect due to F & E shifts. 2. WEBBER/Palpitations: suspect undiagnosed COPD with associated clubbing 3. Suspecting KAYE and pulmonary HTN 4. Hx of colon polyps: bowel prep for outpt colonoscopy postponed due to arrhythmia 5. HTN: controlled 6. HLP History of Present Illness History of Present Illness echo: <Conclusion> There is mild to moderate global hypokinesis of the left ventricle. Septal motion consistent with conduction abnormality. Suspect mild LV dysfunction. Difficult visualization due to suboptimal images. EF estimated around 40-45% Otherwise no SOA, CP or acute events overnight PLAN: MPI later I doubt cards will have further plans that will warrant inpt stay if MPI not bad. Maria Luisa RN PLans of OP event monitor as maria luisa Lange yesterday Vitals Vitals Vital Signs Date Time Temp Pulse Resp B/P (MAP) Pulse Ox O2 Delivery O2 Flow Rate FiO2 04/07/17 09:00 86 115/66 04/07/17 08:00 Nasal Cannula 2.0 04/07/17 07:00 98.3 19 90 98.3 Physical Exam General: Alert, Oriented X3, Cooperative, No acute distress Heart: Regular rate (SR), Normal S1, Normal S2, Other (distant heart sounds) Extremities: No cyanosis, No edema Skin: No breakdown, No significant lesion Review of Systems Review of Systems denies 14 pt Comment Review of Relevant I have reviewed the following items fang (where applicable) has been applied. Labs Laboratory Tests Test 04/05/17 14:50 04/05/17 17:25 04/05/17 20:25 04/06/17 04:50 White Blood Count 10.9 x10^3/uL (4.0-11.0) 10.0 x10^3/uL (4.0-11.0) Red Blood Count 5.28 x10^6/uL (4.30-5.70) 5.07 x10^6/uL (4.30-5.70) Hemoglobin 16.3 g/dL (13.0-17.5) 15.7 g/dL (13.0-17.5) Hematocrit 49.0 % (39.0-53.0) 46.3 % (39.0-53.0) Mean Corpuscular Volume 93 fL (79-100) 91 fL (79-100) Mean Corpuscular Hemoglobin 31 pg (25-35) 31 pg (25-35) Mean Corpuscular Hemoglobin Concent 33 g/dL (31-37) 34 g/dL (31-37) Red Cell Distribution Width 14.2 % (11.5-14.5) 14.1 % (11.5-14.5) Platelet Count 214 x10^3/uL (140-400) 197 x10^3/uL (140-400) Neutrophils (%) (Auto) 50 % (31-73) 50 % (31-73) Lymphocytes (%) (Auto) 38 % (24-48) 37 % (24-48) Monocytes (%) (Auto) 10 % (0-9) 11 % (0-9) Eosinophils (%) (Auto) 2 % (0-3) 2 % (0-3) Basophils (%) (Auto) 1 % (0-3) 1 % (0-3) Neutrophils # (Auto) 5.4 x10^3uL (1.8-7.7) 4.9 x10^3uL (1.8-7.7) Lymphocytes # (Auto) 4.2 x10^3/uL (1.0-4.8) 3.6 x10^3/uL (1.0-4.8) Monocytes # (Auto) 1.1 x10^3/uL (0.0-1.1) 1.1 x10^3/uL (0.0-1.1) Eosinophils # (Auto) 0.2 x10^3/uL (0.0-0.7) 0.2 x10^3/uL (0.0-0.7) Basophils # (Auto) 0.1 x10^3/uL (0.0-0.2) 0.1 x10^3/uL (0.0-0.2) Sodium Level 139 mmol/L (136-145) 142 mmol/L (136-145) Potassium Level 3.4 mmol/L (3.5-5.1) 3.7 mmol/L (3.5-5.1) Chloride Level 103 mmol/L (98-107) 105 mmol/L (98-107) Carbon Dioxide Level 22 mmol/L (21-32) 28 mmol/L (21-32) Anion Gap 14 (6-14) 9 (6-14) Blood Urea Nitrogen 13 mg/dL (8-26) 18 mg/dL (8-26) Creatinine 1.2 mg/dL (0.7-1.3) 1.2 mg/dL (0.7-1.3) Estimated GFR (Cockcroft-Gault) 59.5 59.5 BUN/Creatinine Ratio 11 (6-20) 15 (6-20) Glucose Level 113 mg/dL (70-99) 111 mg/dL (70-99) Calcium Level 8.8 mg/dL (8.5-10.1) 8.5 mg/dL (8.5-10.1) Magnesium Level 1.8 mg/dL (1.8-2.4) 2.0 mg/dL (1.8-2.4) Total Bilirubin 0.6 mg/dL (0.2-1.0) 0.3 mg/dL (0.2-1.0) Aspartate Amino Transf (AST/SGOT) 29 U/L (15-37) 30 U/L (15-37) Alanine Aminotransferase (ALT/SGPT) 25 U/L (16-63) 27 U/L (16-63) Alkaline Phosphatase 109 U/L (46-116) 102 U/L (46-116) Troponin I Quantitative < 0.017 ng/mL (0.000-0.055) < 0.017 ng/mL (0.000-0.055) < 0.017 ng/mL (0.000-0.055) Total Protein 7.5 g/dL (6.4-8.2) 7.1 g/dL (6.4-8.2) Albumin 3.1 g/dL (3.4-5.0) 2.8 g/dL (3.4-5.0) Albumin/Globulin Ratio 0.7 (1.0-1.7) 0.7 (1.0-1.7) Triglycerides Level 160 mg/dL (0-150) Cholesterol Level 156 mg/dL (0-200) LDL Cholesterol, Calculated 90 mg/dL (0-100) VLDL Cholesterol, Calculated 32 mg/dL (0-40) Non-HDL Cholesterol Calculated 122 mg/dL (0-129) HDL Cholesterol 34 mg/dL (40-60) Cholesterol/HDL Ratio 4.6 Thyroid Stimulating Hormone (TSH) 1.307 uIU/mL (0.358-3.74) Medications Current Medications Propofol 40 ml @ As Directed STK-MED ONCE IV ; Start 04/05/17 at 08:56; Stop at 08:57; Status DC Lidocaine HCl (Lidocaine Pf 2% Vial) 5 ml STK-MED ONCE .ROUTE ; Start 04/05/17 at 08:56; Stop 04/05/17 at 08:57; Status DC Ephedrine Sulfate 50 mg STK-MED ONCE IV ; Start 04/05/17 at 08:57; Stop at 08:58; Status DC Aspirin (Children'S Aspirin) 81 mg DAILYWBKFT PO Last administered on 08:35; Start 04/05/17 at 15:00 Acetaminophen (Tylenol) 650 mg PRN Q6HRS PRN PO MILD PAIN / TEMP; Start at 14:30 Ondansetron HCl (Zofran) 4 mg PRN Q6HRS PRN IV NAUSEA/VOMITING; Start 04/05/17 at 14:30 Enoxaparin Sodium (Lovenox 40mg Syringe) 40 mg Q24H SQ Last administered on 14:05; Start 04/05/17 at 15:00 Sodium Chloride (Normal Saline Flush) 3 ml QSHIFT PRN IV AFTER MEDS AND BLOOD DRAWS; Start 04/05/17 at 14:30 Sodium Chloride 1,000 ml @ 30 mls/hr Q24H IV Last administered on 04/05/17 15 :50; Start 04/05/17 at 14:20 Alprazolam (Xanax) 0.5 mg PRN Q6HRS PRN PO ANXIETY / AGITATION Last administered on 04/06/17 20:20; Start 04/05/17 at 14:30 Amlodipine Besylate (Norvasc) 10 mg DAILY PO Last administered on 04/06/17 08: 31; Start 04/05/17 at 15:00; Stop 04/06/17 at 11:48; Status DC Aspirin (Shiela Aspirin) 325 mg HS PO Last administered on 04/06/17 20:11; Start 04/05/17 at 21:00 Atorvastatin Calcium (Lipitor) 20 mg HS PO Last administered on 04/06/17 20:10 ; Start 04/05/17 at 21:00 Lisinopril (Prinivil) 40 mg DAILY PO Last administered on 04/06/17 08:30; Start 04/05/17 at 15:00 Montelukast Sodium (Singulair) 10 mg HS PO Last administered on 04/06/17 20:10 ; Start 04/05/17 at 21:00 Fish Oil (Fish Oil) 1,000 mg DAILY PO Last administered on 04/06/17 08:31; Start 04/05/17 at 15:00 Ropinirole HCl (Requip) 2 mg PRN QHS PRN PO RESTLESS LEGS Last administered on 04/05/17 21:22; Start 04/05/17 at 14:30 Sertraline HCl (Zoloft) 50 mg DAILY PO Last administered on 04/06/17 08:30; Start 04/05/17 at 15:00 Zolpidem Tartrate (Ambien) 5 mg PRN QHS PRN PO INSOMNIA Last administered on 20:16; Start 04/05/17 at 14:30 Mirtazapine (Remeron) 15 mg DAILY PO Last administered on 04/06/17 08:31; Start 04/05/17 at 15:00 Nicotine (Nicoderm Cq 21mg) 1 patch DAILY TD Last administered on 04/07/17 11: 07; Start 04/05/17 at 15:00 Potassium Chloride (Klor-Con) 40 meq 1X ONCE PO Last administered on 18:38; Start 04/05/17 at 18:30; Stop 04/05/17 at 18:31; Status DC Ibuprofen (Motrin) 800 mg PRN Q6HRS PRN PO INFLAMMATION Last administered on 20:35; Start 04/05/17 at 20:30 Diltiazem HCl (Cardizem 24hr Cd) 180 mg DAILY PO Last administered on 14:04; Start 04/06/17 at 12:00 Regadenoson (Lexiscan) 0.4 mg 1X ONCE IV ; Start 04/07/17 at 09:45; Stop at 09:52; Status DC Active Scripts Active Reported Fish Oil 1,000 Mg Capsule ([place]-3 Fatty Acids/Fish Oil) 1 Each Capsule 1 Each PO Aspirin 325 Mg Tablet 325 Mg PO HS Zolpidem Tartrate 5 Mg Tablet 5 Mg PO PRN QHS PRN Alprazolam 0.5 Mg Tablet 0.5 Mg PO PRN Q6HRS PRN Zoloft (Sertraline Hcl) 50 Mg Tablet 50 Mg PO DAILY Requip (Ropinirole Hcl) 1 Mg Tablet 2 Mg PO HS PRN Singulair Tablet (Montelukast Sodium) 10 Mg Tablet 10 Mg PO HS Mirtazapine 30 Mg Tablet 30 Mg PO DAILY Lisinopril 40 Mg Tablet 40 Mg PO DAILY Clonazepam 0.5 Mg Tablet 1 Tab PO DAILY Atorvastatin Calcium 20 Mg Tablet 20 Mg PO HS Amlodipine Besylate 10 Mg Tablet 10 Mg PO DAILY Vitals/I & O Vital Sign - Last 24 Hours 04/06/17 04/06/17 04/06/17 04/06/17 14:04 15:00 19:12 20:00 Temp 98.2 99.1 98.2 99.1 Pulse 89 51 82 Resp 17 18 B/P (MAP) 103/61 109/66 (80) 104/61 (75) Pulse Ox 96 93 O2 Delivery Room Air Nasal Cannula Nasal Cannula O2 Flow Rate 2.0 2.0 04/06/17 04/07/17 04/07/17 04/07/17 22:53 02:56 07:00 08:00 Temp 99.1 98.1 98.3 99.1 98.1 98.3 Pulse 60 78 86 Resp 16 18 19 B/P (MAP) 111/66 (81) 121/68 (85) 115/66 (82) Pulse Ox 95 94 90 O2 Delivery Nasal Cannula Nasal Cannula Nasal Cannula Nasal Cannula O2 Flow Rate 2.0 2.0 2.0 2.0 04/07/17 04/07/17 09:00 09:00 Pulse 86 86 B/P (MAP) 115/66 115/66 ELVER GRAY MD Apr 07, 2017 11:48
--- NOTE | 2017-04-07 13:12 | PDOC ---
CARDIO Progress Notes Date and Time Date of Service 04/07/2017 Time of Evaluation 1220 Subjective Subjective: No Chest Pain, No shortness of breath, No Palpitations, No Dizziness Vitals Vitals Vital Signs Date Time Temp Pulse Resp B/P (MAP) Pulse Ox O2 Delivery O2 Flow Rate FiO2 04/07/17 11:00 98.0 78 18 118/68 (85) 94 Nasal Cannula 2.0 98.0 Weight Weight [ ] Physical Exam HEENT: Neck Supple W Full Motion Chest: Symmetric LUNGS: Other (diminished bases) Heart: S1S2, irregularly irregular (AFIB) Abdomen: Soft N/T Extremities: No Calf Tenderness, Other (trace LE edema) Neurology: alert, oriented, follow commands Assessment Assessment 1. PAFIB/flutter: new onset. RVR this am brief episodes. HR 90-130 2. Undiagnosed COPD; positive for clubbing, will need PFTs, defer to PCP 3. Suspecting KAYE 4. Cardiomyopathy: possibly tachy induced. EF 40-45% 5. Hx of colon polyps: bowel prep for outpt colonoscopy postponed due to arrhythmia 6. HTN: controlled 7. HLP Recommendations 1. Will start on cardizem CD today. Lopressor x1 IV and Dig x1 1 IV. If HR better then will proceed with the stress portion of MPI. 2. Continue on lisinopril and may titrate down to accomodate rate controlling agents if need be. 3. Pt finally agreed with cardiac testing. Reinforced treatment plan but would like to follow up with [facility]. 4. Pending MPI will consider Eliquis start. And also will encourage event monitor placement as an outpt. 5. Continue with secondary prevention 6. COPD w/u per PCP 7. smoking cessation PALMA EPPS APRN Apr 07, 2017 13:12
[2017-04-07] MEDS ORDERED: METOPROLOL TARTRATE 5 MG/5 ML VIAL. IVP ONE (13:15)
[2017-04-07] MEDS ORDERED: DIGOXIN IV 500 MCG/2 ML AMPUL. IV ONE (13:15)
[2017-04-07] MEDS: IV 1/2 NORMAL SALINE 1,000 ML IV SCH (14:20)
[2017-04-07 15:00] VITALS: BP 160/59
--- NOTE | 2017-04-07 15:46 | RAD ---
APPROVED REPORT Test Type: Pharmacological Stress Nurse/Tech: Torri Bennett R.N. Test Indications: Arrythmia, cardiomyopathy Cardiac History: htn, smoker Medications: See Electronic Medical Record Medical History: See Electronic Medical Record Resting ECG: SR Resting Heart Rate: 76 bpm Resting Blood Pressure: 126/70mmHg Pretest Chest Pain: No chest pain Nurse/Tech Notes S1S2, lungs slightly coarse in bases Consent: The procedure was explained to the patient in lay terms. Informed consent was witnessed. Kimo eout was entered into [employer]. History and Stress Test performed by RT Mike (Froylan) (N) Pharm. Details Pharmacologic stress testing was performed using 0.4mg per 5ml of regadenoson given intravenously ove r 7-10 seconds. Stress Symptoms slight SOB POST EXERCISE Reason for Termination: Infusion complete Max HR: 90 bpm Max Blood Pressure: 124/67mmHg Blood Pressure response to exercise: Normal blood pressure response during stress. Heart Rate response to exercise: wnl Chest Pain: No. Arrhythmia: No. ST Change: No. INTERPRETATION Stress EKG Conclusion: The resting EKG shows a normal sinus rhythm. The stress EKG shows no significant changes from baseline. No EKG evidence of stress-induced ischemia. Imaging Protocol IMAGE PROTOCOL: Rest Tc-99m/stress Tc-99m 1 day Rest: Stress: Viability: Radiopharm.Tc99m SpabprhnwKi44m Sestamibi Dose10.7mCi 33mCi Img Date 04/07/2017 04/07/2017 Inj-Img [id number]. 45min. Rest Admin Site:IV - Left HandAdministrator:RT Mike (Froylan)(N) Stress Admin Site: IV - Left HandAdministrator: RT Mike (R)(N) STRESS DATA End Diast. Vol.107.0mlAv. Heart Rate89.0bpm End Syst. Vol.49.0mlCO Index BSA0.0L/min Myocardial Hwit910.0gEject. Dezcjvzm82.0% Stress Rates Pk. Fill Rate1.48EDV/secLVtime Pk. Fill 82.40msec Pk. Empty Rate2.93ESV/secLVtime Pk. Opjmo260.53msec 07/12 Pk. Fill1.05EDV/sec Stress Scores Regional WT1.00Summed WT13.00 Regional WM0.00Summed WM14.00 LV Perfusion The stress scans showed mild inferior wall thickening. The rest scans showed mild inferior wall thickening. Nuclear imaging shows no reversible ischemia. Nuclear imaging shows mild inferior wall thinning consistent with an attenuation defect. Wall Motion The systolic function is normal with an ejection fraction of 54%. LV Perf. Quant 17 Seg. SSS3.00 17 Seg. SRS2.00 17 Seg. SDS1.00 Stress Defect Extent (% LAD)0.00Rest Defect Extent (% LAD)0.00Rev. Defect Extent (% LAD)0.00 Stress Defect Extent (% LCX) 26.30Rest Defect Extent (% LCX)18.80Rev. Defect Extent (% LCX)0.00 Stress Defect Extent (% RCA)5.60Rest Defect Extent (% RCA)0.00Rev. Defect Extent (% RCA)0.00 Stress Defect Extent (% FORD)6.30Rest Defect Extent (% FORD)3.70Rev. Defect Extent (% FORD)0.00 Conclusion 1. No EKG evidence of stress-induced ischemia. 2. Nuclear imaging shows no reversible ischemia. 3. Nuclear imaging shows mild fixed inferior wall thinning most consistent with an attenuation defect . 4. Normal left ventricular systolic function with an ejection fraction of 54%. 5. Low to moderately low risk Lexiscan nuclear stress test.
[2017-04-07] MEDS: ENOXAPARIN 40 MG/0.4 ML SYRINGE. SQ SCH (15:56)
[2017-04-07] MEDS ORDERED: ANTI-COAG MONITOR BY PHARMACY. MC PRN (16:30)
[2017-04-07 19:50] VITALS: BP 114/60
[2017-04-07] MEDS: ASPIRIN 325 MG TABLET PO SCH (20:09)
[2017-04-07] MEDS: APIXABAN 5 MG TABLET. PO SCH (20:09)
[2017-04-07] MEDS: ATORVASTATIN CALCIUM 20 MG TABLET PO SCH (20:09)
[2017-04-07] MEDS: MONTELUKAST SODIUM 10 MG TABLET. PO SCH (20:10)
[2017-04-07] MEDS: IBUPROFEN 400 MG TABLET. PO PRN (20:10)
[2017-04-07] MEDS: ALPRAZolam 0.5 MG TABLET PO PRN (21:03)
[2017-04-07] MEDS: ZOLPIDEM 5 MG TABLET. PO PRN (21:03)
[2017-04-07 23:00] VITALS: BP 106/69
[2017-04-08 03:00] VITALS: BP 121/62
[2017-04-08 07:00] VITALS: BP 127/76
[2017-04-08] MEDS: SERTRALINE 50 MG TABLET. PO SCH (08:49)
[2017-04-08] MEDS: LISINOPRIL 40 MG TABLET. PO SCH (08:49)
[2017-04-08] MEDS: APIXABAN 5 MG TABLET. PO SCH (08:49)
[2017-04-08] MEDS: OMEGA-3 FATTY ACIDS/FISH OIL 1,000 MG CAPSULE. PO SCH (08:49)
[2017-04-08] MEDS: ASPIRIN 325 MG TABLET PO SCH (08:50)
[2017-04-08] MEDS: MIRTAZAPINE 15 MG TABLET PO SCH (08:50)
[2017-04-08] MEDS: NICOTINE 21MG PATCH. TD SCH (08:50)
[2017-04-08] MEDS: ASPIRIN CHEWABLE 81 MG TABLET. PO SCH (08:56)
[2017-04-08 11:00] VITALS: BP 121/74
[2017-04-08] MEDS ORDERED: DILT180C2 PO (12:32)
[2017-04-08] MEDS ORDERED: APIX5TAB PO (12:35)
--- NOTE | 2017-04-08 12:37 | PDOC3 ---
Discharge Summary Visit Information Date of Admission: Apr 05, 2017 Date of Discharge: Apr 08, 2017 Admitting Diagnosis Comment: 1. 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 No AFIB. Suspect due to F & E shifts. 2. WEBBER/Palpitations: suspect undiagnosed COPD with associated clubbing 3. Suspecting KAYE and pulmonary HTN 4. Hx of colon polyps: bowel prep for outpt colonoscopy postponed due to arrhythmia 5. HTN: controlled 6. HLP Brief Hospital Course Allergies Allergies Coded Allergies Type Severity Reaction Last Updated Verified Penicillins Allergy Severe 04/04/17 Yes bupropion Allergy Intermediate RESTLESS LEG 04/05/17 Yes buspirone Allergy Intermediate RESTLESS LEG 04/05/17 Yes escitalopram Allergy Intermediate RESTLESS LEG 04/05/17 Yes fluoxetine Allergy Intermediate RESTLESS LEG 04/07/17 Yes fluticasone Allergy Intermediate RESTLESS LEG 04/05/17 Yes mirtazapine Allergy Intermediate RESTLESS LEG 04/05/17 Yes nortriptyline Allergy Intermediate RESTLESS LEG 04/05/17 Yes olanzapine Allergy Intermediate RESTLESS LEG 04/07/17 Yes oxycodone Allergy Intermediate RESTLESS LEG 04/05/17 Yes paroxetine Allergy Intermediate RESTLESS LEG 04/05/17 Yes sertraline Allergy Intermediate RESTLESS LEG 04/05/17 Yes venlafaxine Allergy Intermediate RESTLESS LEG 04/05/17 Yes Vital Signs Vital Signs Date Time Temp Pulse Resp B/P (MAP) Pulse Ox O2 Delivery O2 Flow Rate FiO2 04/08/17 11:00 98.1 84 18 121/74 (90) 94 Nasal Cannula 3.0 98.1 Brief Hospital Course Mr. Kohli is a 71 old male admitted for arrhythmia, USually follows at [place], Co managed with cards. Echo done, SOme med adjustments needed. Stop norvasc, Start cardizem 180 PO qD, Also started on elliquis 5 mg PO BID Sen and examined ff up cards [facility] dc time32 mins, > 50% counselling Dispo; home Discharge Information Condition at Discharge: Improved, Stable Follow Up: Weeks ([place] cards) Disposition/Orders: D/C to Home Scheduled Amlodipine Besylate (Amlodipine Besylate), 10 MG PO DAILY, (Reported) Aspirin (Aspirin), 325 MG PO HS, (Reported) Atorvastatin Calcium (Atorvastatin Calcium), 20 MG PO HS, (Reported) Clonazepam (Clonazepam), 1 TAB PO DAILY, (Reported) Lisinopril (Lisinopril), 40 MG PO DAILY, (Reported) Mirtazapine (Mirtazapine), 30 MG PO DAILY, (Reported) Montelukast Sodium (Singulair Tablet), 10 MG PO HS, (Reported) Sertraline Hcl (Zoloft), 50 MG PO DAILY, (Reported) Scheduled PRN Alprazolam (Alprazolam), 0.5 MG PO PRN Q6HRS PRN for ANXIETY / AGITATION, ( Reported) Ropinirole Hcl (Requip), 2 MG PO HS PRN for RESTLESS LEGS, (Reported) Zolpidem Tartrate (Zolpidem Tartrate), 5 MG PO PRN QHS PRN for INSOMNIA, ( Reported) Miscellaneous Medications [place]-3 Fatty Acids/Fish Oil (Fish Oil 1,000 Mg Capsule), 1 EACH PO, (Reported) ELVER GRAY MD Apr 08, 2017 12:37
[2017-04-08] MEDS: IV 1/2 NORMAL SALINE 1,000 ML IV SCH (14:20)
== END 2017-04-08 16:11 | disposition home or self-care (01) | DRG 308 ==
LOC: ENDOS 07:48 → 2 SOUTH 11:35
PROVIDERS: ADMIT Internal Medicine Hematology & Oncology; ATTEND Internal Medicine Hematology & Oncology
DX: I47.1 Supraventricular tachycardia (principal); J96.00 Acute respiratory failure, unspecified whether with hypoxia or hypercapnia; I42.9 Cardiomyopathy, unspecified; E11.42 Type 2 diabetes mellitus with diabetic polyneuropathy; I27.2 Other secondary pulmonary hypertension; E44.1 Mild protein-calorie malnutrition; J44.9 Chronic obstructive pulmonary disease, unspecified; I48.0 Paroxysmal atrial fibrillation; I10 Essential (primary) hypertension; E78.5 Hyperlipidemia, unspecified; F17.210 Nicotine dependence, cigarettes, uncomplicated; F43.10 Post-traumatic stress disorder, unspecified; F32.9 Major depressive disorder, single episode, unspecified; F41.9 Anxiety disorder, unspecified; H26.9 Unspecified cataract; G47.33 Obstructive sleep apnea (adult) (pediatric); M19.90 Unspecified osteoarthritis, unspecified site; Z88.0 Allergy status to penicillin; Z88.8 Allergy status to other drugs, medicaments and biological substances; Z79.4 Long term (current) use of insulin; Z79.82 Long term (current) use of aspirin; Z82.49 Family history of ischemic heart disease and other diseases of the circulatory system; Z86.010 Personal history of colon polyps; Z71.6 Tobacco abuse counseling
CPT/HCPCS: 36415; 71010; 78452; 80053; 80061; 83735; 84443; 84484; 85025; 93005; 93017; 93306; 96374; 96375; 96376; 99406; A9500; J1160; J1650; J2704; J2785; J3490; J2001

== ENCOUNTER 2017-05-26 02:13 | Inpatient (IN) | payer MEDICARE, OTHER ==
[~2017-05-26] VITALS: Ht 180.3 cm; Wt 94.3 kg
[2017-05-26] VITALS (18 sets, daily range): BP systolic 104–152; BP diastolic 52–86
[~2017-05-26 02:13] MED LIST: ALPR0.5T6 PO; AMLO10TA2 PO; APIX5TAB PO; ASPI325T8 PO; ATOR20TA58 PO; CLON0.5T3 PO; DILT180C2 PO; LISI40TA PO; MIRT30TA3 PO; MONT10TA6 PO; OMEG1CAP6 PO; ROPI1TAB PO; SERT50TA PO; ZOLP5TAB5 PO
[2017-05-26] MEDS ORDERED: IV NORMAL SALINE 1000ML BAG 1,000 ML IV ONE (06:00)
[2017-05-26] MEDS: MORPHINE SULFATE 4 MG/ML DISP.SYRIN. IV PRN ×4 (06:42→20:54)
[2017-05-26] MEDS: IV NORMAL SALINE 1000ML BAG 1,000 ML IV SCH ×2 (06:42→17:36)
--- NOTE | 2017-05-26 07:53 | PDOC ---
Infectious Disease Note Vital Sign Vital Signs Vital Signs Date Time Temp Pulse Resp B/P (MAP) Pulse Ox O2 Delivery O2 Flow Rate FiO2 05/26/17 06:42 15 93 Nasal Cannula 4.0 Objective Assessment Leukocytosis POA now s/p solumedrol times one Abx allergies - PCN as a child/Sulfa - ? nausea Post obstructive pneumonia Met Lung CA s/p XRT at [facility] last was 05/24 Pancreatitis lipase - 2016 ? Diverticulitis - on CT ? GB disease on CT Plan Plan of Care D/c levoflox/Flagyl/Vanc Dose Meropenem/Zyvox/Fluconazole Consult Drs. Enriquez/Viv F/u labs and cults Reviewed [place] notes 35 mins Thank you # [phone] LEATHA JAMISON MD May 26, 2017 07:53
[2017-05-26 07:56] LABS: BASO % 0 % (0-3); EOS % 0 % (0-3); HEMATOCRIT 43.9 % (39.0-53.0); HEMOGLOBIN 14.2 g/dL (13.0-17.5); LYMPH # 0.4 x10^3/uL (1.0-4.8); LYMPH % 2 % (24-48); MEAN CORPUSCULAR HEMOGLOBIN 30 pg (25-35); MEAN CORPUSCULAR HGB CONC 32 g/dL (31-37); MEAN CORPUSCULAR VOLUME 92 fL (79-100); MONO % 1 % (0-9); NEUT % 97 % (31-73); PLATELET COUNT 136 x10^3/uL (140-400); RED BLOOD COUNT 4.77 x10^6/uL (4.30-5.70); RED CELL DISTRIBUTION WIDTH 14.7 % (11.5-14.5); WHITE BLOOD COUNT 21.5 x10^3/uL (4.0-11.0)
[2017-05-26] MEDS ORDERED: MEROPENEM 500 MG in IV NORMAL SALINE 50ML 50 ML IV SCH (08:00)
[2017-05-26 08:10] LABS: ALBUMIN 1.4 g/dL (3.4-5.0); ALBUMIN/GLOBULIN RATIO 0.4 (1.0-1.7); CALCIUM 6.9 mg/dL (8.5-10.1); CREATININE 1.7 mg/dL (0.7-1.3); GFR 39.8; MAGNESIUM 2.2 mg/dL (1.8-2.4); TOTAL BILIRUBIN 0.6 mg/dL (0.2-1.0)
[2017-05-26] MEDS ORDERED: ALPRAZolam 0.5 MG TABLET PO PRN (08:45)
[2017-05-26] MEDS ORDERED: rOPINIRole 1 MG TABLET. PO PRN (08:45)
[2017-05-26] MEDS ORDERED: ZOLPIDEM 5 MG TABLET. PO PRN (08:45)
[2017-05-26] MEDS: FLUCONAZOLE 200MG/100ML PREMIX 100 ML IV SCH (08:56)
[2017-05-26 08:58] LABS: PLT ESTIMATE ADEQUATE (ADEQUATE)
[2017-05-26] MEDS: MEROPENEM IV Push 500 MG VIAL. IVP SCH ×3 (08:59→18:54)
[2017-05-26] MEDS: APIXABAN 5 MG TABLET. PO SCH ×2 (09:00→19:39)
[2017-05-26] MEDS: clonazePAM 0.5 MG TABLET PO SCH (09:00)
--- NOTE | 2017-05-26 09:01 | PDOC1 ---
History and Physical Date of Admission Date of Admission DATE: 05/26/17 TIME: 08:53 Identification/Chief Complaint Chief Complaint chestpain Problems: Source Source: Chart review, Patient History of Present Illness History of Present Illness transferred from the ER at [place], patient wanted to go to the [facility], he gets all his care there, and they were on diversion. He declined [facility]. Has has lung cancer, and has started radiation therapy 1 week ago, he has not felt well this week adn did miss one treatment he presented to the ER last with worsening dyspnea, cough and chest pain , also marked abdominal pain "band like" pain around her abdomen, this AM, he complains of lethargy, feels a little confused, but is AXO, complains of pain, and dyspnea. pain 5/ Past Medical History Cardiovascular: HTN, Hyperlipidemia Pulmonary: No pertinent hx CENTRAL NERVOUS SYSTEM: Periperal neuropathy, Other GI: Other Heme/Onc: Cancer Hepatobiliary: No pertinent hx Psych: Anxiety, Depression Musculoskeletal: Osteoarthritis Rheumatologic: No pertinent hx Infectious disease: No pertinent hx Renal/: No pertinent hx Endocrine: Diabetes Past Surgical History Past Surgical History: Tonsillectomy, Other Family History Family History: Coronary Artery Disease Social History ALCOHOL: none Drugs: None Current Medications Current Medications Current Medications Sodium Chloride 1,000 ml @ 125 mls/hr Q8H IV Last administered on 05/26/17 06:42; Start 05/26/17 at 07:00 Sodium Chloride 1,000 ml @ 1,000 mls/hr 1X ONCE IV Last administered on 05/26 05:30; Start 05/26/17 at 06:00; Stop 05/26/17 at 06:59; Status DC Morphine Sulfate 4 mg PRN Q2HR PRN IV PAIN Last administered on 05/26/17 06: 42; Start 05/26/17 at 05:45 Meropenem 500 mg/ Sodium Chloride 50 ml @ 100 mls/hr Q6HRS IV ; Start at 08:00; Status UNV Linezolid 300 ml @ 300 mls/hr Q12HR IV ; Start 05/26/17 at 09:00 Fluconazole/ Sodium Chloride 100 ml @ 100 mls/hr Q24H IV ; Start 05/26/17 at 08:00 Meropenem (Merrem) 500 mg Q6HRS IVP ; Start 05/26/17 at 08:00 Alprazolam (Xanax) 0.5 mg PRN Q6HRS PRN PO ANXIETY / AGITATION; Start at 08:45 Apixaban (Eliquis) 5 mg BID PO ; Start 05/26/17 at 09:00 Aspirin (Shiela Aspirin) 325 mg HS PO ; Start 05/26/17 at 21:00 Atorvastatin Calcium (Lipitor) 20 mg HS PO ; Start 05/26/17 at 21:00 Clonazepam (KlonoPIN) 0.5 mg DAILY PO ; Start 05/26/17 at 09:00 Diltiazem HCl (Cardizem 24hr Cd) 180 mg DAILY PO ; Start 05/26/17 at 09:00 Montelukast Sodium (Singulair) 10 mg HS PO ; Start 05/26/17 at 21:00 Ropinirole HCl (Requip) 2 mg PRN QHS PRN PO RESTLESS LEGS; Start 05/26/17 at 08:45 Sertraline HCl (Zoloft) 50 mg DAILY PO ; Start 05/26/17 at 09:00 Zolpidem Tartrate (Ambien) 5 mg PRN QHS PRN PO INSOMNIA; Start 05/26/17 at 08: 45 Mirtazapine (Remeron) 30 mg QHS PO ; Start 05/26/17 at 21:00 Active Scripts Active Eliquis (Apixaban) 5 Mg Tablet 5 Mg PO BID 60 Days Cardizem Cd (Diltiazem Hcl) 180 Mg Cap.er.24h 1 Cap PO DAILY Reported Fish Oil 1,000 Mg Capsule ([place]-3 Fatty Acids/Fish Oil) 1 Each Capsule 1 Each PO Aspirin 325 Mg Tablet 325 Mg PO HS Zolpidem Tartrate 5 Mg Tablet 5 Mg PO PRN QHS PRN Alprazolam 0.5 Mg Tablet 0.5 Mg PO PRN Q6HRS PRN Zoloft (Sertraline Hcl) 50 Mg Tablet 50 Mg PO DAILY Requip (Ropinirole Hcl) 1 Mg Tablet 2 Mg PO HS PRN Singulair Tablet (Montelukast Sodium) 10 Mg Tablet 10 Mg PO HS Mirtazapine 30 Mg Tablet 30 Mg PO DAILY Lisinopril 40 Mg Tablet 40 Mg PO DAILY Clonazepam 0.5 Mg Tablet 1 Tab PO DAILY Atorvastatin Calcium 20 Mg Tablet 20 Mg PO HS Allergies Allergies: Coded Allergies: Penicillins (Verified Allergy, Severe, 04/04/17) bupropion (Verified Allergy, Intermediate, RESTLESS LEG, 04/05/17) buspirone (Verified Allergy, Intermediate, RESTLESS LEG, 04/05/17) escitalopram (Verified Allergy, Intermediate, RESTLESS LEG, 04/05/17) fluoxetine (Verified Allergy, Intermediate, RESTLESS LEG, 04/07/17) fluticasone (Verified Allergy, Intermediate, RESTLESS LEG, 04/05/17) mirtazapine (Verified Allergy, Intermediate, RESTLESS LEG, 04/05/17) nortriptyline (Verified Allergy, Intermediate, RESTLESS LEG, 04/05/17) olanzapine (Verified Allergy, Intermediate, RESTLESS LEG, 04/07/17) oxycodone (Verified Allergy, Intermediate, RESTLESS LEG, 04/05/17) paroxetine (Verified Allergy, Intermediate, RESTLESS LEG, 04/05/17) sertraline (Verified Allergy, Intermediate, RESTLESS LEG, 04/05/17) venlafaxine (Verified Allergy, Intermediate, RESTLESS LEG, 04/05/17) ROS General: YES: Fatigue, Malaise, Appetite, No: Chills, Night Sweats, Other PSYCHOLOGICAL ROS: YES: Memory difficulties, Sleep disturbances, No: Anxiety, Behavioral Disorder, Concentration difficultie, Decreased libido , Depression, Disorientation, Hallucinations, Hostility, Irritablity, Mood Swings, Obsessive thoughts, Other Eyes: No Blurry vision, No Decreased vision, No Double vision, No Dry eyes, No Excessive tearing, No Eye Pain, No Itchy Eyes, No Loss of vision, No Photophobia , No Scotomata, No Uses contacts, No Uses glasses, No Other Respiratory: YES: Shortness of breath, SOB with excertion, Tachypnea, No: Cough, Hemoptysis, Orthopnea, Pleuritic Pain, Sputum Changes, Stridor, Wheezing, Other Cardiovascular: yes Chest Pain, No Palpitations, No Orthopnea, No Paroxysmal Noc. Dyspnea, No Edema, No Lt Headedness, No Other Gastrointestinal: Yes Nausea, Yes Abdominal Pain, No Vomiting, No Diarrhea, No Constipation, No Melena, No Hematochezia, No Other Genitourinary: No Dysuria, No Frequency, No Incontinence, No Hematuria, No Retention, No Discharge, No Urgency, No Pain, No Flank Pain, No Other, No , No , No , No , No , No , No Musculoskeletal: No Gait Disturbance, No Joint Pain, No Joint Stiffness, No Joint Swelling, No Muscle Pain, No Muscular Weakness, No Pain In:, No Swelling In:, No Other Neurological: No Behavorial Changes, No Bowel/Bladder ControlChng, No Confusion , No Dizziness, No Gait Disturbance, No Headaches, No Impaired Coord/balance, No Memory Loss, No Numbness/Tingling, No Seizures, No Speech Problems, No Tremors, No Visual Changes, No Weakness, No Other Skin: Yes Dry Skin, No Eczema, No Hair Changes, No Lumps, No Mole Changes, No Mottling, No Nail Changes, No Pruritus, No Rash, No Skin Lesion Changes, No Other, No Acne Physical Exam General: Alert, Cooperative, mild distress HEENT: Mucous membr. moist/pink Lungs: Clear to auscultation Heart: no gallops, no murmurs Abdomen: Normal bowel sounds, Soft (tender, ) Extremities: Normal pulses Skin: No breakdown Neuro: Normal tone, Cranial nerves 3-12 NL Psych/Mental Status: Other Vitals Vitals Vital Signs Date Time Temp Pulse Resp B/P (MAP) Pulse Ox O2 Delivery O2 Flow Rate FiO2 05/26/17 07:00 98 20 130/79 (96) 92 Nasal Cannula 4.0 05/26/17 05:00 98.4 98.4 Labs Labs Laboratory Tests Test 05/26/17 07:40 White Blood Count 21.5 x10^3/uL (4.0-11.0) Red Blood Count 4.77 x10^6/uL (4.30-5.70) Hemoglobin 14.2 g/dL (13.0-17.5) Hematocrit 43.9 % (39.0-53.0) Mean Corpuscular Volume 92 fL (79-100) Mean Corpuscular Hemoglobin 30 pg (25-35) Mean Corpuscular Hemoglobin Concent 32 g/dL (31-37) Red Cell Distribution Width 14.7 % (11.5-14.5) Platelet Count 136 x10^3/uL (140-400) Neutrophils (%) (Auto) 97 % (31-73) Lymphocytes (%) (Auto) 2 % (24-48) Monocytes (%) (Auto) 1 % (0-9) Eosinophils (%) (Auto) 0 % (0-3) Basophils (%) (Auto) 0 % (0-3) Neutrophils # (Auto) 20.8 x10^3uL (1.8-7.7) Lymphocytes # (Auto) 0.4 x10^3/uL (1.0-4.8) Monocytes # (Auto) 0.3 x10^3/uL (0.0-1.1) Eosinophils # (Auto) 0.0 x10^3/uL (0.0-0.7) Basophils # (Auto) 0.0 x10^3/uL (0.0-0.2) Sodium Level 139 mmol/L (136-145) Potassium Level 5.0 mmol/L (3.5-5.1) Chloride Level 105 mmol/L (98-107) Carbon Dioxide Level 25 mmol/L (21-32) Anion Gap 9 (6-14) Blood Urea Nitrogen 84 mg/dL (8-26) Creatinine 1.7 mg/dL (0.7-1.3) Estimated GFR (Cockcroft-Gault) 39.8 BUN/Creatinine Ratio 49 (6-20) Glucose Level 247 mg/dL (70-99) Lactic Acid Level 1.6 mmol/L (0.4-2.0) Calcium Level 6.9 mg/dL (8.5-10.1) Magnesium Level 2.2 mg/dL (1.8-2.4) Total Bilirubin 0.6 mg/dL (0.2-1.0) Aspartate Amino Transf (AST/SGOT) 52 U/L (15-37) Alanine Aminotransferase (ALT/SGPT) 89 U/L (16-63) Alkaline Phosphatase 105 U/L (46-116) Total Protein 5.0 g/dL (6.4-8.2) Albumin 1.4 g/dL (3.4-5.0) Albumin/Globulin Ratio 0.4 (1.0-1.7) Laboratory Tests Test 05/26/17 07:40 White Blood Count 21.5 x10^3/uL (4.0-11.0) Red Blood Count 4.77 x10^6/uL (4.30-5.70) Hemoglobin 14.2 g/dL (13.0-17.5) Hematocrit 43.9 % (39.0-53.0) Mean Corpuscular Volume 92 fL (79-100) Mean Corpuscular Hemoglobin 30 pg (25-35) Mean Corpuscular Hemoglobin Concent 32 g/dL (31-37) Red Cell Distribution Width 14.7 % (11.5-14.5) Platelet Count 136 x10^3/uL (140-400) Neutrophils (%) (Auto) 97 % (31-73) Lymphocytes (%) (Auto) 2 % (24-48) Monocytes (%) (Auto) 1 % (0-9) Eosinophils (%) (Auto) 0 % (0-3) Basophils (%) (Auto) 0 % (0-3) Neutrophils # (Auto) 20.8 x10^3uL (1.8-7.7) Lymphocytes # (Auto) 0.4 x10^3/uL (1.0-4.8) Monocytes # (Auto) 0.3 x10^3/uL (0.0-1.1) Eosinophils # (Auto) 0.0 x10^3/uL (0.0-0.7) Basophils # (Auto) 0.0 x10^3/uL (0.0-0.2) Sodium Level 139 mmol/L (136-145) Potassium Level 5.0 mmol/L (3.5-5.1) Chloride Level 105 mmol/L (98-107) Carbon Dioxide Level 25 mmol/L (21-32) Anion Gap 9 (6-14) Blood Urea Nitrogen 84 mg/dL (8-26) Creatinine 1.7 mg/dL (0.7-1.3) Estimated GFR (Cockcroft-Gault) 39.8 BUN/Creatinine Ratio 49 (6-20) Glucose Level 247 mg/dL (70-99) Lactic Acid Level 1.6 mmol/L (0.4-2.0) Calcium Level 6.9 mg/dL (8.5-10.1) Magnesium Level 2.2 mg/dL (1.8-2.4) Total Bilirubin 0.6 mg/dL (0.2-1.0) Aspartate Amino Transf (AST/SGOT) 52 U/L (15-37) Alanine Aminotransferase (ALT/SGPT) 89 U/L (16-63) Alkaline Phosphatase 105 U/L (46-116) Total Protein 5.0 g/dL (6.4-8.2) Albumin 1.4 g/dL (3.4-5.0) Albumin/Globulin Ratio 0.4 (1.0-1.7) VTE Prophylaxis Ordered VTE Prophylaxis Devices: Yes VTE Pharmacological Prophylaxi: No Assessment/Plan Assessment/Plan Acute vasomotor nephropathy, serum cr. was 2.4 at [facility], now improved, hyperkalemia 6.7 there,, given insulin, kayexalate, 3 liters NS, now better , post obstructive pneumonia, acute hypoxic respiratory failure with pneumonia, sepsis due to pna metastatic lung cancer, getting radiotherapy Lung cancer, stage IV Severe protein calorie malnutrition, Alb 1.4, with weakness, muscle wasting check urine for protein, renal consult SHARMILA PEREA MD May 26, 2017 09:01
--- NOTE | 2017-05-26 09:06 | PDOC ---
Provider Note Provider Note Med Onc consult Stage 4 lung ca - obtain [facility] Brain mets on XRT - consult Dr Gann See dictation [id number] DONALD PETERS MD May 26, 2017 09:06
--- NOTE | 2017-05-26 09:38 | PDOC2 ---
GI CONSULT Reason For Consult: Pancreatitis HPI: HPI: 71 y/o male transferred from [facility] where he was evaluated for weakness, SOA. PMH as below, unfortunately w/ metastatic lung cancer, receiving radiation. CT chest/A/P w/ right infrahilar mass, associated obstruction of RLL bronchus and obstructive atelectasis, small right pleural effusion, extensive adenopathy, bilateral adrenal nodules, extensive peripancreatic inflammatory changes, possible transverse colon diverticulitis, indeterminate right hepatic lobe lesion, indeterminate renal lesions, hyperattenuating material in GB. CT head w / possible metastasis. Office records: four previous colonoscopies, h/o sessile serrated adenoma in 2013, diverticulosis and hemorrhoids. No previous EGD. No pancreas history. Found w/ lipase >2000, mild transaminitis, hyperkalemic (received Kayexalate) leukocytosis, atbx per ID. Not feeling well overall, has abd pain, no n/v. Says has been eating. Loose stools after treatment for OIC (?or Kayexalate). No bleeding, on Eliquis and ASA. Abd US ordered. Is DNR. 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, HTN, HLD, peripheral neuropathy, anxiety/ depression, PTSD, pre-DM, left rotator cuff repair, PAF, COPD, colon polyps, diverticulosis FH: Family History: No pertinent hx Social History: Smoke: Quit ALCOHOL: none Drugs: None ROS: GEN: Denies fevers, chills, sweats HEENT: Denies blurred vision, sore throat CV: Denies chest pain RESP: +SOA GI: Per HPI : Denies hematuria, dysuria ENDO: Denies weight changes NEURO: ?confusion MSK: +weak SKIN: Denies jaundice, pruritus Vitals: Vitals: Vital Signs Date Time Temp Pulse Resp B/P (MAP) Pulse Ox O2 Delivery O2 Flow Rate FiO2 05/26/17 07:00 98 20 130/79 (96) 92 Nasal Cannula 4.0 05/26/17 05:00 98.4 98.4 Labs: Labs: Laboratory Tests Test 05/26/17 07:40 White Blood Count 21.5 x10^3/uL (4.0-11.0) Red Blood Count 4.77 x10^6/uL (4.30-5.70) Hemoglobin 14.2 g/dL (13.0-17.5) Hematocrit 43.9 % (39.0-53.0) Mean Corpuscular Volume 92 fL (79-100) Mean Corpuscular Hemoglobin 30 pg (25-35) Mean Corpuscular Hemoglobin Concent 32 g/dL (31-37) Red Cell Distribution Width 14.7 % (11.5-14.5) Platelet Count 136 x10^3/uL (140-400) Neutrophils (%) (Auto) 97 % (31-73) Lymphocytes (%) (Auto) 2 % (24-48) Monocytes (%) (Auto) 1 % (0-9) Eosinophils (%) (Auto) 0 % (0-3) Basophils (%) (Auto) 0 % (0-3) Neutrophils # (Auto) 20.8 x10^3uL (1.8-7.7) Lymphocytes # (Auto) 0.4 x10^3/uL (1.0-4.8) Monocytes # (Auto) 0.3 x10^3/uL (0.0-1.1) Eosinophils # (Auto) 0.0 x10^3/uL (0.0-0.7) Basophils # (Auto) 0.0 x10^3/uL (0.0-0.2) Segmented Neutrophils % 95 % (35-66) Band Neutrophils % 3 % (0-9) Lymphocytes % 1 % (24-48) Monocytes % 1 % (0-10) Platelet Estimate Adequate (ADEQUATE) Sodium Level 139 mmol/L (136-145) Potassium Level 5.0 mmol/L (3.5-5.1) Chloride Level 105 mmol/L (98-107) Carbon Dioxide Level 25 mmol/L (21-32) Anion Gap 9 (6-14) Blood Urea Nitrogen 84 mg/dL (8-26) Creatinine 1.7 mg/dL (0.7-1.3) Estimated GFR (Cockcroft-Gault) 39.8 BUN/Creatinine Ratio 49 (6-20) Glucose Level 247 mg/dL (70-99) Lactic Acid Level 1.6 mmol/L (0.4-2.0) Calcium Level 6.9 mg/dL (8.5-10.1) Magnesium Level 2.2 mg/dL (1.8-2.4) Total Bilirubin 0.6 mg/dL (0.2-1.0) Aspartate Amino Transf (AST/SGOT) 52 U/L (15-37) Alanine Aminotransferase (ALT/SGPT) 89 U/L (16-63) Alkaline Phosphatase 105 U/L (46-116) Total Protein 5.0 g/dL (6.4-8.2) Albumin 1.4 g/dL (3.4-5.0) Albumin/Globulin Ratio 0.4 (1.0-1.7) Lipase 1500 U/L (73-393) Allergies: Coded Allergies: Penicillins (Verified Allergy, Severe, 04/04/17) bupropion (Verified Allergy, Intermediate, RESTLESS LEG, 04/05/17) buspirone (Verified Allergy, Intermediate, RESTLESS LEG, 04/05/17) escitalopram (Verified Allergy, Intermediate, RESTLESS LEG, 04/05/17) fluoxetine (Verified Allergy, Intermediate, RESTLESS LEG, 04/07/17) fluticasone (Verified Allergy, Intermediate, RESTLESS LEG, 04/05/17) mirtazapine (Verified Allergy, Intermediate, RESTLESS LEG, 04/05/17) nortriptyline (Verified Allergy, Intermediate, RESTLESS LEG, 04/05/17) olanzapine (Verified Allergy, Intermediate, RESTLESS LEG, 04/07/17) oxycodone (Verified Allergy, Intermediate, RESTLESS LEG, 04/05/17) paroxetine (Verified Allergy, Intermediate, RESTLESS LEG, 04/05/17) sertraline (Verified Allergy, Intermediate, RESTLESS LEG, 04/05/17) venlafaxine (Verified Allergy, Intermediate, RESTLESS LEG, 04/05/17) Medications: Current Medications Medications (Trade) Dose Ordered Sig/Arleen Route PRN Reason Start Time Stop Time Status Last Admin Dose Admin Sodium Chloride 1,000 ml @ 125 mls/hr Q8H IV 05/26/17 07:00 05/26/17 06:42 Sodium Chloride 1,000 ml @ 1,000 mls/hr 1X ONCE IV 05/26/17 06:00 05/26/17 06:59 DC 05/26/17 05:30 Morphine Sulfate 4 mg PRN Q2HR PRN IV PAIN 05/26/17 05:45 11/17/17 06:42 Fluconazole/ Sodium Chloride 100 ml @ 100 mls/hr Q24H IV 05/26/17 08:00 05/26/17 08:56 Meropenem (Merrem) 500 mg Q6HRS IVP 05/26/17 08:00 05/26/17 08:59 Imaging: Imaging: Per HPI. PE: GEN: uncomfortable HEENT: Atraumatic, PERRL LUNGS: diminished, nasal cannula HEART: tachycardic ABD: on the quiet side, some distention, tender EXTREMITY: No edema SKIN: No rashes, no jaundice NEURO/PSYCH: A & O 3 A/P: A/P: Stage IV lung cancer, SOA, obstruction on imaging Leukocytosis, MICHAEL Abd pain Pancreatitis -elevated lipase (improved), mild transaminitis -?abnormal GB, abd US ordered ?diverticulitis -last colonoscopy w/ serrated adenoma, diverticulosis, hemorrhoids in 2012 -- Medical therapy for pancreatitis. DIMITRIS ALBERTO May 26, 2017 09:38
--- NOTE | 2017-05-26 11:35 | PDOC2 ---
CONSULT Date of Consult Date of Consult DATE: 05/26/17 TIME: 11:29 Reason for Consult Reason for Consult: MICHAEL AND HIGH K Referring Physician Referring Physician: BRIT Identification/Chief Complaint Chief Complaint WEAKNESS AND SOB Problems: History of Present Illness Reason for Visit: THIS IS A 71 YR OLD ADMITTED WITH PNEUMONIA AND MICHAEL. CR WAS2.4 AND K WAS 6.7 AT [facility]. NO CKD REPORTED. HX NOTABLE FOR MET LUNG CA FOR WHICH HE IS FOLLOWED AT THE [facility]. HE HAS UNDERGONE RAD TX AND CHEMO TX IS PENDING. ALSO DX WITH PNEUMONIA. NO PROBLEMS EMPTYING HIS BLADDER PER PT. NO HX OF ANY KIDNEY OR BLADDER SURGERIES HEMATURIA DYSURIA OR FREQUENCY. NO APPETITE FOR NEARLY A WEEK PER DAUGHTER Past Medical History Cardiovascular: HTN, Hyperlipidemia Pulmonary: No pertinent hx CENTRAL NERVOUS SYSTEM: Periperal neuropathy, Other GI: Other Heme/Onc: Cancer Hepatobiliary: No pertinent hx Psych: Anxiety, Depression Musculoskeletal: Osteoarthritis Rheumatologic: No pertinent hx Infectious disease: No pertinent hx Renal/: No pertinent hx Endocrine: Diabetes Past Surgical History Past Surgical History: Tonsillectomy, Other Family History Family History: Coronary Artery Disease Social History Quit ALCOHOL: none Drugs: None Lives: with Family Current Medications Current Medications Current Medications Sodium Chloride 1,000 ml @ 125 mls/hr Q8H IV Last administered on 05/26/17 06:42; Start 05/26/17 at 07:00 Sodium Chloride 1,000 ml @ 1,000 mls/hr 1X ONCE IV Last administered on 05/26 05:30; Start 05/26/17 at 06:00; Stop 05/26/17 at 06:59; Status DC Morphine Sulfate 4 mg PRN Q2HR PRN IV PAIN Last administered on 05/26/17 11: 22; Start 05/26/17 at 05:45 Meropenem 500 mg/ Sodium Chloride 50 ml @ 100 mls/hr Q6HRS IV ; Start at 08:00; Status UNV Linezolid 300 ml @ 300 mls/hr Q12HR IV Last administered on 05/26/17 11:26; Start 05/26/17 at 09:00 Fluconazole/ Sodium Chloride 100 ml @ 100 mls/hr Q24H IV Last administered on 05/26/17 08:56; Start 05/26/17 at 08:00 Meropenem (Merrem) 500 mg Q6HRS IVP Last administered on 05/26/17 08:59; Start 05/26/17 at 08:00 Alprazolam (Xanax) 0.5 mg PRN Q6HRS PRN PO ANXIETY / AGITATION; Start at 08:45 Apixaban (Eliquis) 5 mg BID PO ; Start 05/26/17 at 09:00 Aspirin (Shiela Aspirin) 325 mg HS PO ; Start 05/26/17 at 21:00 Atorvastatin Calcium (Lipitor) 20 mg HS PO ; Start 05/26/17 at 21:00 Clonazepam (KlonoPIN) 0.5 mg DAILY PO ; Start 05/26/17 at 09:00 Diltiazem HCl (Cardizem 24hr Cd) 180 mg DAILY PO Last administered on 11:22; Start 05/26/17 at 09:00 Montelukast Sodium (Singulair) 10 mg HS PO ; Start 05/26/17 at 21:00 Ropinirole HCl (Requip) 2 mg PRN QHS PRN PO RESTLESS LEGS; Start 05/26/17 at 08:45 Sertraline HCl (Zoloft) 50 mg DAILY PO ; Start 05/26/17 at 09:00 Zolpidem Tartrate (Ambien) 5 mg PRN QHS PRN PO INSOMNIA; Start 05/26/17 at 08: 45 Mirtazapine (Remeron) 30 mg QHS PO ; Start 05/26/17 at 21:00 Active Scripts Active Eliquis (Apixaban) 5 Mg Tablet 5 Mg PO BID 60 Days Cardizem Cd (Diltiazem Hcl) 180 Mg Cap.er.24h 1 Cap PO DAILY Reported Fish Oil 1,000 Mg Capsule ([place]-3 Fatty Acids/Fish Oil) 1 Each Capsule 1 Each PO Aspirin 325 Mg Tablet 325 Mg PO HS Zolpidem Tartrate 5 Mg Tablet 5 Mg PO PRN QHS PRN Alprazolam 0.5 Mg Tablet 0.5 Mg PO PRN Q6HRS PRN Zoloft (Sertraline Hcl) 50 Mg Tablet 50 Mg PO DAILY Requip (Ropinirole Hcl) 1 Mg Tablet 2 Mg PO HS PRN Singulair Tablet (Montelukast Sodium) 10 Mg Tablet 10 Mg PO HS Mirtazapine 30 Mg Tablet 30 Mg PO DAILY Lisinopril 40 Mg Tablet 40 Mg PO DAILY Clonazepam 0.5 Mg Tablet 1 Tab PO DAILY Atorvastatin Calcium 20 Mg Tablet 20 Mg PO HS Allergies Allergies: Coded Allergies: Penicillins (Verified Allergy, Severe, 04/04/17) bupropion (Verified Allergy, Intermediate, RESTLESS LEG, 04/05/17) buspirone (Verified Allergy, Intermediate, RESTLESS LEG, 04/05/17) escitalopram (Verified Allergy, Intermediate, RESTLESS LEG, 04/05/17) fluoxetine (Verified Allergy, Intermediate, RESTLESS LEG, 04/07/17) fluticasone (Verified Allergy, Intermediate, RESTLESS LEG, 04/05/17) mirtazapine (Verified Allergy, Intermediate, RESTLESS LEG, 04/05/17) nortriptyline (Verified Allergy, Intermediate, RESTLESS LEG, 04/05/17) olanzapine (Verified Allergy, Intermediate, RESTLESS LEG, 04/07/17) oxycodone (Verified Allergy, Intermediate, RESTLESS LEG, 04/05/17) paroxetine (Verified Allergy, Intermediate, RESTLESS LEG, 04/05/17) sertraline (Verified Allergy, Intermediate, RESTLESS LEG, 04/05/17) venlafaxine (Verified Allergy, Intermediate, RESTLESS LEG, 04/05/17) ROS General: YES: Fatigue, Malaise, Appetite PSYCHOLOGICAL ROS: YES: Anxiety, Depression Eyes: Yes Decreased vision HEENT: YES: Heacaches, Nasal congestion ALLERGY AND IMMUNOLOGY: YES: Seasonal Allergies Respiratory: YES: Cough, Shortness of breath Gastrointestinal: Yes Nausea, Yes Constipation Genitourinary: YES Other (DECREASED UO NOTED) Musculoskeletal: Yes Muscular Weakness Neurological: Yes Weakness Skin: Yes Dry Skin Physical Exam General: Alert, Oriented X3, Cooperative, No acute distress HEENT: Atraumatic, PERRLA, EOMI, Mucous membr. moist/pink Lungs: Other (DECREASED AT BASES MORE ON THE RIGHT) Heart: Regular rate, Normal S1, Normal S2 Abdomen: Normal bowel sounds, Soft Extremities: No clubbing Skin: No breakdown Neuro: Normal speech, Cranial nerves 3-12 NL Psych/Mental Status: Other (FLAT AFFECT) MUSCULOSKELETAL: No joint tenderness, No deformity, Other (DIFFUSE ATROPHY) Vitals VITALS Vital Signs Date Time Temp Pulse Resp B/P (MAP) Pulse Ox O2 Delivery O2 Flow Rate FiO2 05/26/17 11:22 96 120/80 05/26/17 11:22 18 93 Nasal Cannula 4.0 05/26/17 05:00 98.4 98.4 Labs Labs Laboratory Tests Test 05/26/17 07:40 White Blood Count 21.5 x10^3/uL (4.0-11.0) Red Blood Count 4.77 x10^6/uL (4.30-5.70) Hemoglobin 14.2 g/dL (13.0-17.5) Hematocrit 43.9 % (39.0-53.0) Mean Corpuscular Volume 92 fL (79-100) Mean Corpuscular Hemoglobin 30 pg (25-35) Mean Corpuscular Hemoglobin Concent 32 g/dL (31-37) Red Cell Distribution Width 14.7 % (11.5-14.5) Platelet Count 136 x10^3/uL (140-400) Neutrophils (%) (Auto) 97 % (31-73) Lymphocytes (%) (Auto) 2 % (24-48) Monocytes (%) (Auto) 1 % (0-9) Eosinophils (%) (Auto) 0 % (0-3) Basophils (%) (Auto) 0 % (0-3) Neutrophils # (Auto) 20.8 x10^3uL (1.8-7.7) Lymphocytes # (Auto) 0.4 x10^3/uL (1.0-4.8) Monocytes # (Auto) 0.3 x10^3/uL (0.0-1.1) Eosinophils # (Auto) 0.0 x10^3/uL (0.0-0.7) Basophils # (Auto) 0.0 x10^3/uL (0.0-0.2) Segmented Neutrophils % 95 % (35-66) Band Neutrophils % 3 % (0-9) Lymphocytes % 1 % (24-48) Monocytes % 1 % (0-10) Platelet Estimate Adequate (ADEQUATE) Sodium Level 139 mmol/L (136-145) Potassium Level 5.0 mmol/L (3.5-5.1) Chloride Level 105 mmol/L (98-107) Carbon Dioxide Level 25 mmol/L (21-32) Anion Gap 9 (6-14) Blood Urea Nitrogen 84 mg/dL (8-26) Creatinine 1.7 mg/dL (0.7-1.3) Estimated GFR (Cockcroft-Gault) 39.8 BUN/Creatinine Ratio 49 (6-20) Glucose Level 247 mg/dL (70-99) Lactic Acid Level 1.6 mmol/L (0.4-2.0) Calcium Level 6.9 mg/dL (8.5-10.1) Magnesium Level 2.2 mg/dL (1.8-2.4) Total Bilirubin 0.6 mg/dL (0.2-1.0) Aspartate Amino Transf (AST/SGOT) 52 U/L (15-37) Alanine Aminotransferase (ALT/SGPT) 89 U/L (16-63) Alkaline Phosphatase 105 U/L (46-116) Total Protein 5.0 g/dL (6.4-8.2) Albumin 1.4 g/dL (3.4-5.0) Albumin/Globulin Ratio 0.4 (1.0-1.7) Lipase 1500 U/L (73-393) Laboratory Tests Test 05/26/17 07:40 White Blood Count 21.5 x10^3/uL (4.0-11.0) Red Blood Count 4.77 x10^6/uL (4.30-5.70) Hemoglobin 14.2 g/dL (13.0-17.5) Hematocrit 43.9 % (39.0-53.0) Mean Corpuscular Volume 92 fL (79-100) Mean Corpuscular Hemoglobin 30 pg (25-35) Mean Corpuscular Hemoglobin Concent 32 g/dL (31-37) Red Cell Distribution Width 14.7 % (11.5-14.5) Platelet Count 136 x10^3/uL (140-400) Neutrophils (%) (Auto) 97 % (31-73) Lymphocytes (%) (Auto) 2 % (24-48) Monocytes (%) (Auto) 1 % (0-9) Eosinophils (%) (Auto) 0 % (0-3) Basophils (%) (Auto) 0 % (0-3) Neutrophils # (Auto) 20.8 x10^3uL (1.8-7.7) Lymphocytes # (Auto) 0.4 x10^3/uL (1.0-4.8) Monocytes # (Auto) 0.3 x10^3/uL (0.0-1.1) Eosinophils # (Auto) 0.0 x10^3/uL (0.0-0.7) Basophils # (Auto) 0.0 x10^3/uL (0.0-0.2) Segmented Neutrophils % 95 % (35-66) Band Neutrophils % 3 % (0-9) Lymphocytes % 1 % (24-48) Monocytes % 1 % (0-10) Platelet Estimate Adequate (ADEQUATE) Sodium Level 139 mmol/L (136-145) Potassium Level 5.0 mmol/L (3.5-5.1) Chloride Level 105 mmol/L (98-107) Carbon Dioxide Level 25 mmol/L (21-32) Anion Gap 9 (6-14) Blood Urea Nitrogen 84 mg/dL (8-26) Creatinine 1.7 mg/dL (0.7-1.3) Estimated GFR (Cockcroft-Gault) 39.8 BUN/Creatinine Ratio 49 (6-20) Glucose Level 247 mg/dL (70-99) Lactic Acid Level 1.6 mmol/L (0.4-2.0) Calcium Level 6.9 mg/dL (8.5-10.1) Magnesium Level 2.2 mg/dL (1.8-2.4) Total Bilirubin 0.6 mg/dL (0.2-1.0) Aspartate Amino Transf (AST/SGOT) 52 U/L (15-37) Alanine Aminotransferase (ALT/SGPT) 89 U/L (16-63) Alkaline Phosphatase 105 U/L (46-116) Total Protein 5.0 g/dL (6.4-8.2) Albumin 1.4 g/dL (3.4-5.0) Albumin/Globulin Ratio 0.4 (1.0-1.7) Lipase 1500 U/L (73-393) Assessment/Plan Assessment/Plan IMP MICHAEL-ATN DEHYDRATION HYPERKALEMIA MET LUNG CA S/P RAD TX-PENDING CHEMO AT [facility] PROB PNEUMONIA PANCREATITIS PROTEIN CALORIE MALNUTRITION PLAN IVF'S PPN GI EVAL AND TX PULM EVAL AND TX HOLD HOME MED LISINOPRIL ANTIBIOTICS UPDATED FAMILY JOSÉ TRINIDAD MD May 26, 2017 11:35
--- NOTE | 2017-05-26 11:49 | RAD ---
Right upper quadrant abdominal ultrasound, 05/26/2017: History: Pancreatitis The gallbladder is within normal limits in size. There is no sonographic evidence of cholelithiasis. The gallbladder mendoza are not thickened. The common hepatic duct measures 5 mm. No hepatic mass is seen. A small cyst is noted in the upper pole of the right kidney. The kidneys are otherwise unremarkable. The visualized portions of the pancreatic body show no abnormality. Other portions of the pancreas were obscured by overlying bowel. There is a small amount of ascites in the abdomen. A small right pleural effusion is noted. IMPRESSION: 1. No sonographic evidence of cholelithiasis. 2. The pancreas was incompletely delineated due to overlying bowel. 3. Small right renal cyst. 4. Minimal ascites. 5. Right pleural effusion
--- NOTE | 2017-05-26 12:02 | CONS ---
DATE OF CONSULTATION: 05/26/2017 ATTENDING PHYSICIAN: Katrina Herron MD. REASON FOR CONSULTATION: Respiratory failure. HISTORY OF PRESENT ILLNESS: The patient is a 71-year-old male who smoked for at least 50 years. He has history of a stage 4 lung cancer with mets to the brain and has been diagnosed at the [facility] and has started radiation treatment to the brain. He was brought in from [facility] where he initially presented with increasing dyspnea, cough and chest pain and also abdominal pain. The patient was confused as well. His CT chest was performed and was reviewed by me from yesterday. It has multiple abnormalities including a large right infrahilar mass with complete collapse of the right lower lobe. There is also mild to moderate right pleural effusion and there is mediastinal and right axillary adenopathy. There were adrenal metastases. There were also peripancreatic inflammatory changes suggestive of pancreatitis. The patient also has extensive retroperitoneal and pelvic adenopathy. Currently, he is requiring 4 liters of oxygen. He was initiated on broad-spectrum antibiotics and his hyperkalemia was also corrected. The patient was in acute renal failure with a BUN of 84 and a creatinine of 1.7. We have been asked to see him for further evaluation. His daughter is at the bedside who gave much of the history as well. PAST MEDICAL HISTORY: History of stage 4 lung cancer, diagnosed at the [facility] and status post brain radiation; history of hypertension; suspected severe COPD; hyperlipidemia; peripheral neuropathy; osteoarthritis. PAST SURGICAL HISTORY: Tonsillectomy. FAMILY HISTORY: Coronary artery disease. ALLERGIES: Multiple and they were all reviewed as listed in the MRAD. MEDICATIONS: Were also reviewed as listed in the MRAD including antibiotic meropenem. REVIEW OF SYSTEMS: Limited as patient is unable to give much of the history. PHYSICAL EXAMINATION: VITAL SIGNS: Blood pressure 120/80, afebrile, pulse ox is 93% on 4 liters. HEENT: Sclerae nonicteric. NECK: Supple. LUNGS: Few rhonchi anteriorly. CARDIOVASCULAR: Regular rate and rhythm. ABDOMEN: Soft, obese. EXTREMITIES: With trace pitting edema. LABORATORY DATA: Reviewed. BUN 84, creatinine 1.7, lactic acid is 1.6, lipase is 1500. White cell count 21.5, hemoglobin 14.2 and platelets are 136. IMPRESSION: 1. Acute hypoxic respiratory failure secondary to multifactorial etiologies including combination of postobstructive pneumonia with large infrahilar mass. Small to moderate pleural effusion could be related to malignancy and also abdominal pain and underlying chronic obstructive pulmonary disease. 2. Stage 4 lung cancer diagnosed recently at the [facility] with brain metastasis, status post cranial radiation, but has not had any chemo or radiation to the chest. 3. Abnormal CT chest with large right infrahilar mass with postobstructive collapse of the right lower lobe and a small to moderate pleural effusion. There is also evidence of pancreatitis. There is extensive retroperitoneal and pelvic lymphadenopathy. We may be dealing with another malignancy. I will follow Dr. Nam's recommendation. 4. Underlying chronic obstructive pulmonary disease. 5. Increased lipase secondary to pancreatitis. RECOMMENDATIONS: 1. Continue with present oxygen. 2. Broad-spectrum antibiotics. 3. Follow white cell count. 4. Follow Oncology recommendations. 5. Follow Radiation/Oncology recommendation. 6. Follow renal recommendation. The patient's BUN and creatinine was markedly elevated. 7. Continue supportive care. 8. Follow lipase levels. 9. Discussed with the patient's daughter at the bedside. The patient is a DNR. d/w Dr Gann Critical care time 38 minutes. EDWIGE HOLT MD DR: LEA/yuri JOB#: [id number] / [id number] ANDRE
[2017-05-26] MEDS ORDERED: ANTI-COAG MONITOR BY PHARMACY. MC PRN (13:45)
[2017-05-26] MEDS: SERTRALINE 50 MG TABLET. PO SCH (13:53)
[2017-05-26] MEDS: AMINO AC 3%/ELECTROLYTE/GLYCER 1,000 ML IV SCH (13:57)
--- NOTE | 2017-05-26 14:04 | PDOC ---
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 He was undergoing palliative whole brain radiation at[facility] with 5 of 10 planned treatments the last given 05/24/2017. Now with SOB and severe abd pain. PE Obvious dyspnea with conversation. On nasal o2. Abd distended with generalized tenderness. CT head [facility] two low density lesions left frontal and medial left temporal lobes. c/w mets Small high density mass rt apical parietal lobe consistent with small hemorrhae. CT chest bultky RLL mass obstructing RLL bronchus, adrenal nodules, Intraabdominal fat stranding c/w inflammation, generally enlarged pancreas, retroperitoneal adenopathy. cbc Hb 14.2 wbc 21.500, plat 136K Chem Cr 1.7 AST 52 ALT 89 Lipase 1500 Impression: Extensive small cell lung carcinoma and likely acute pancreatitis. Poor performance status, No significant neuro sxs. Recommend palliative care with hospice. Discussed with patient in general and with the family in detail. Review with COLLETTE Walker MD May 26, 2017 14:04
[2017-05-26] MEDS ORDERED: fentaNYL 25MCG/HR PATCH 1 PATCH PATCH.TD72 TD SCH (15:00)
[2017-05-26] MEDS: MORPHINE SULFATE 10 MG/ML VIAL. IV PRN ×3 (16:27→22:37)
--- NOTE | 2017-05-26 18:35 | CONS ---
DATE OF CONSULTATION: 05/26/2017 PATIENT'S ROOM: ICU. REQUESTING PHYSICIAN: Dr. Herron. REASON FOR CONSULTATION: Elevated lactic acid of 4. HISTORY OF PRESENT ILLNESS: The patient is somewhat of a poor historian and he has been ill for age for several weeks, he states. According to the [facility]'s notes, he is a gentleman with stage IV lung cancer with mets to the brain and adrenal, receiving radiation at the [facility]. He states the last radiation treatment was 05/24/2017 after which he felt weak. Yesterday, he apparently felt so weak that his had trouble lifting him from a chair. He did not have any fever, chills, chest pain, no vomiting or diarrhea, but does have occasional cough and no gross sputum production. He presented to [facility] and had laboratory values obtained. He was found to have a white count of 23.8 with 9% bands. His creatinine was 2.4, AST was 54, ALT was 86. His lipase was 2017. His ProBNP was 715. He underwent a CT scan of his chest, abdomen and pelvis showed there was a left upper lobe mass of 2.1 x 1.6. There were noncalcified pulmonary nodules, emphysema and the right lower lobe bronchus had obstructive atelectasis. Additionally, he had extensive peripancreatic inflammation suggestive of interstitial edematous pancreatitis wall thickening and inflammatory changes center on the diverticula suggestive of diverticulitis without evidence of perforation. He was subsequently transferred to [facility]. He had been placed in the intensive care unit. Currently, he is having some difficulty getting comfortable. Denies any fevers or chills or sweats. He has no gross sinus issues, has had very dry throat with occasional cough. No nausea, vomiting. Denies any pain. No rashes or itches. PAST MEDICAL HISTORY: Positive for the metastatic lung cancer. He has the acute renal failure, the pancreatitis, diverticulitis. ALLERGIES: LISTED PENICILLIN WELL BACTRIM. HE STATES THE PENICILLIN WAS A CHILD, SOFT, BUT DOES NOT SO SURE. HE THINKS IT MADE HIM A SICK, ALSO LISTED BUPROPION, BUSPIRONE, ESCITALOPRAM, FLUOXETINE, FLUTICASONE, RESERPINE, NORTRIPTYLINE, OXYCODONE, PAROXETINE, AMATOL, SERTRALINE AND ZANAFLEX. SOCIAL HISTORY: He is . Denies any current tobacco use. FAMILY HISTORY: Noncontributory. CURRENT MEDICATIONS: He received a dose of vancomycin, levofloxacin, metronidazole upon transfer. He has gotten some morphine and some normal saline. He states he was taking an antibiotic at home, but cannot remember what it was or what it was for, but I question whether this is accurate or not. Also, he received some DuoNebs, insulin and Solu-Medrol x 1. PHYSICAL EXAMINATION: VITAL SIGNS: Temperature 98.4, pulse 98, respirations 20, blood pressure 130/79, satting 92% on 4 liters. CONSTITUTIONAL: He is alert. He is cooperative, but is confused and states he does not remember when asked several questions and just feels too tired to answer. HEENT: His pupils are equal and reactive. He has normal conjunctivae. Oral cavity, pharynx is clear. NECK: Supple, no JVD. LUNGS: Have some mild rhonchi. HEART: S1, S2. ABDOMEN: Obese, soft, nontender, nondistended. EXTREMITIES: Without clubbing, cyanosis or gross edema. SKIN: Warm to touch without signs of rash. NEUROLOGIC: He moved all extremities and was cooperative, but was too weak to answer a lot of questions. LABORATORY VALUES: White count 21.5, hemoglobin 14.2, platelets of 136, neutrophils 97, lymphs are 2, no other imaging today. IMPRESSION: 1. Leukocytosis, present on admission, now status post Solu-Medrol x 1. 2. ANTIBIOTIC ALLERGY LISTED PENICILLIN A CHILD, SOFT BUT QUESTIONABLE NAUSEA. 3. Postobstructive pneumonia. 4. Metastatic lung cancer [facility], he states last was on 05/24/2017. 5. Pancreatitis with elevated lipase of 217. 6. Questionable diverticulitis on CT, questionable gallbladder disease on CT. RECOMMENDATIONS: Discontinue further levofloxacin, Flagyl, vancomycin. We will dose meropenem and Zyvox. We will consult Dr. Enriquez and Dr. Nam, has already been consulted and we will follow up on laboratory values, repeat his lipase and CMP. I did review [facility] notes, discussed the case with EJ Randle of GI. I spent 35 minutes critical care time. Thank you for allowing me to participate in the patient's care. If you have any questions, please do not hesitate to contact me. LEATHA JAMISON MD DR: Nancy JOB#: [id number] / [id number]
--- NOTE | 2017-05-26 19:08 | CONS ---
DATE OF CONSULTATION: 05/26/2017 CONSULTATION REQUESTED BY: Dr. Katrina Herron. REASON FOR CONSULTATION: Lung cancer with brain metastasis, undergoing radiation therapy at [facility]. HISTORY OF PRESENT ILLNESS: The patient is a 71-year-old gentleman who reports being diagnosed with lung cancer approximately 2 weeks ago at the [facility]. He has a history of metastatic disease to the brain and the adrenal gland and he has been getting radiation therapy to his brain metastasis at the [facility]. He presented to [facility] on 05/25/2017 with generalized weakness and shortness of breath. He underwent a CT scan of the chest, abdomen and pelvis on 05/25/2017 at [facility] and this revealed a right infrahilar mass with obstruction of the right lower lobe bronchus, small to moderate right-sided pleural effusion. There is evidence of hilar mediastinal right axillary lymphadenopathy. Bilateral adrenal nodule suspicious for metastatic disease, indeterminate liver and renal lesions. Extensive retroperitoneal and pelvic lymphadenopathy and the largest lymph node is in the right inguinal region measuring 2.[address] scan of the head on 05/25/2017 revealed hyperattenuating focus in the right post central gyrus measuring 7 mm, which may be hemorrhagic metastasis versus a cavernoma. There are metastatic lesions in the left frontal temporal lobes with edema due to metastatic disease. He denies any chest pain or hemoptysis. No fevers, chills or night sweats. PAST MEDICAL HISTORY: COPD, arthritis, lung cancer as described above, hypertension and hypercholesterolemia. SOCIAL HISTORY: He has a history of cigarette smoking for 55 years. FAMILY HISTORY: Negative for lung cancer. REVIEW OF SYSTEMS: A 12-point review of system was performed. Pertinent positives are mentioned in the history of present illness. Rest of the system review is negative. PHYSICAL EXAMINATION: GENERAL APPEARANCE: The patient is a 71-year-old gentleman who is in no acute cardiorespiratory distress. VITAL SIGNS: Blood pressure 130/79, temperature 98.4. HEAD: Atraumatic, normocephalic. EYES: No icterus. NECK: Supple. CHEST: Bilaterally symmetrical. HEART: S1, S2 normal. ABDOMEN: Soft, nontender. CENTRAL NERVOUS SYSTEM: No focal deficits. LYMPHATICS: No lymphadenopathy. SKIN: No rashes. PSYCHOLOGIC: Mood and affect are appropriate. MUSCULOSKELETAL: No joint effusions. LABORATORY DATA: WBC 21.5, hemoglobin 14.2, platelet count 136, creatinine 1.7. IMPRESSION AND PLAN: 1. Lung cancer involving the right hilar/right lower lobe with metastatic disease to the mediastinum, axillary lymph nodes, bilateral adrenal glands abdominal lymph nodes and brain. He has been diagnosed at the [facility] and I will request records from the [facility]. He is currently undergoing radiation therapy to the brain and I will consult Dr. Gann for consideration of radiation therapy. I have advised him to return for followup to his primary oncologist at the [facility] upon discharge for further management of stage IV lung cancer. 2. Brain metastasis. I reviewed the CT scan of the head results. Consult Dr. Gann. 3. Leukocytosis, reactive, appreciate ID consultation. 4. Thrombocytopenia, mild. Continue to monitor. 5. Generalized weakness, likely for malignancy. 6. Dyspnea from chronic obstructive pulmonary disease versus possible pneumonia. Consult Pulmonary Medicine. DONALD PETERS MD DR: JUDY/yuri JOB#: [id number] / [id number] ANDRE
[2017-05-26] MEDS ORDERED: MONTELUKAST SODIUM 10 MG TABLET. PO SCH (21:00)
[2017-05-26] MEDS ORDERED: MIRTAZAPINE 15 MG TABLET PO SCH (21:00)
[2017-05-26] MEDS ORDERED: ASPIRIN 325 MG TABLET PO SCH (21:00)
[2017-05-26] MEDS ORDERED: ATORVASTATIN CALCIUM 20 MG TABLET PO SCH (21:00)
[2017-05-27] MEDS: MEROPENEM IV Push 500 MG VIAL. IVP SCH ×2 (00:25→06:00)
[2017-05-27] MEDS: AMINO AC 3%/ELECTROLYTE/GLYCER 1,000 ML IV SCH (00:25)
[2017-05-27] MEDS: MORPHINE SULFATE 10 MG/ML VIAL. IV PRN ×7 (00:52→21:34)
[2017-05-27 03:00] VITALS: BP 120/74
[2017-05-27 06:00] LABS: BASO % 0 % (0-3); EOS % 0 % (0-3); HEMATOCRIT 44.8 % (39.0-53.0); HEMOGLOBIN 14.8 g/dL (13.0-17.5); LYMPH # 0.9 x10^3/uL (1.0-4.8); LYMPH % 5 % (24-48); MEAN CORPUSCULAR HEMOGLOBIN 31 pg (25-35); MEAN CORPUSCULAR HGB CONC 33 g/dL (31-37); MEAN CORPUSCULAR VOLUME 93 fL (79-100); MONO % 2 % (0-9); NEUT % 94 % (31-73); PLATELET COUNT 122 x10^3/uL (140-400); RED BLOOD COUNT 4.83 x10^6/uL (4.30-5.70); RED CELL DISTRIBUTION WIDTH 14.7 % (11.5-14.5); WHITE BLOOD COUNT 19.2 x10^3/uL (4.0-11.0)
[2017-05-27 06:31] LABS: ALBUMIN 1.2 g/dL (3.4-5.0); ALBUMIN/GLOBULIN RATIO 0.3 (1.0-1.7); CALCIUM 7.3 mg/dL (8.5-10.1); CREATININE 1.9 mg/dL (0.7-1.3); TOTAL BILIRUBIN 0.4 mg/dL (0.2-1.0); TOTAL PROTEIN 5.3 g/dL (6.4-8.2)
[2017-05-27 06:33] LABS: POTASSIUM 5.6 mmol/L (3.5-5.1)
[2017-05-27 06:35] LABS: MAGNESIUM 2.6 mg/dL (1.8-2.4); PHOSPHORUS 6.9 mg/dL (2.6-4.7)
[2017-05-27 07:36] VITALS: BP 78/50
[2017-05-27] MEDS: clonazePAM 0.5 MG TABLET PO SCH (08:01)
[2017-05-27] MEDS: APIXABAN 5 MG TABLET. PO SCH (08:01)
[2017-05-27] MEDS: SERTRALINE 50 MG TABLET. PO SCH (08:02)
[2017-05-27] MEDS: FLUCONAZOLE 200MG/100ML PREMIX 100 ML IV SCH (08:13)
[2017-05-27] MEDS ORDERED: IV NORMAL SALINE 1000ML BAG 1,000 ML IV ONE (08:45)
[2017-05-27] MEDS ORDERED: IV NORMAL SALINE 500ML BAG 500 ML IV PRN (09:00)
--- NOTE | 2017-05-27 09:12 | PDOC ---
SUBJECTIVE ROS MICHAEL not feeling too well. wants to drink water; getting lots of MS and is somewhat drowsy; asking to speak to a emblem fuser tender CVS: no Orthopnea, no CP RESP: no SOB, no WEBBER GI: min Nausea, no Vomiting : no Dysuria, no Urgency OBJECTIVE Vital Signs Vital Signs Date Time Temp Pulse Resp B/P (MAP) Pulse Ox O2 Delivery O2 Flow Rate FiO2 05/27/17 08:01 101 70/42 05/27/17 07:36 97.5 22 91 Nasal Cannula 4.0 97.5 I & 0 Intake and Output 05/27/17 07:00 Intake Total 1635 ml Output Total 1590 ml Balance 45 ml Intake Oral 235 ml IV Total 1400 ml Output Urine Total 1590 ml PHYSICAL EXAM Physical Exam GEN: Awake but drowsy, Oriented x 1, In at least mod distress EYES: sclera anicteric , Conjunctiva Normal EN: No EN Drainage, Mucous Membranes dry NECK: no JVD, no JVP, Supple, no Thyromegaly - thick neck CVS: S1S2, no Murmur, No Gallop, No Rub,no Edema RESP: no Rales, no Rhonchi,no Acc. Muscle Use GI: BS hypoactive, NO Bruit,+ Tender, ? Distended : no CVA tenderness, no Suprapubic Tenderness DIAGNOSIS/ASSESSMENT Assessment & Plan MICHAEL - suspect asso with Low BP and Pancreatitis. UO is OK so far. Chemotherapy asso Michael / ATN cannot be rule dout. Given underlying Lung Ca and ongoing issues - DNR status - comfort measures may be appropriate - discussed with Dr Bill. Pancreatitis - on PPN for now ^ed K - await family plans for comfort measures - Unable to pursue HD without Pressors given current BP HypoTN: IV Florinef for now suspect Addisonian state given aria Adr Nodules, ^K Discussed Plan of Care with Dr Henriquez, Rn - ? Proceed to Palliation given poor overall progonsois Problems: COMMENT/RELEVANT DATA Meds Current Medications Medications (Trade) Dose Ordered Sig/Arleen Start Time Stop Time Status Last Admin Dose Admin Alprazolam (Xanax) 0.5 mg PRN Q6HRS PRN 05/26/17 08:45 Amino Acids/ Glycerin/ Electrolytes 1,000 ml @ 80 mls/hr [id number] 05/26/17 12:00 05/27/17 00:25 80 MLS/HR Apixaban (Eliquis) 5 mg BID 05/26/17 09:00 Aspirin (Shiela Aspirin) 325 mg HS 05/26/17 21:00 Atorvastatin Calcium (Lipitor) 20 mg HS 05/26/17 21:00 Clonazepam (KlonoPIN) 0.5 mg DAILY 05/26/17 09:00 Diltiazem HCl (Cardizem 24hr Cd) 180 mg DAILY 05/26/17 09:00 05/26/17 11:22 180 MG Fentanyl (Duragesic 25mcg/ Hr Patch) 1 patch Q3DAYS 05/26/17 15:00 05/26/17 14:54 1 PATCH Fluconazole/ Sodium Chloride 100 ml @ 100 mls/hr Q24H 05/26/17 08:00 05/27/17 08:13 100 MLS/HR Info (Anti-Coagulation Monitoring By Pharmacy) 1 each PRN DAILY PRN 05/26/17 13:45 05/26/17 13:46 1 EACH Linezolid 300 ml @ 300 mls/hr Q12HR 05/26/17 21:00 05/26/17 20:46 300 MLS/HR Meropenem (Merrem) 500 mg Q6HRS 05/26/17 08:00 05/27/17 06:00 500 MG Meropenem 500 mg/ Sodium Chloride 50 ml @ 100 mls/hr Q6HRS 05/26/17 08:00 UNV Mirtazapine (Remeron) 30 mg QHS 05/26/17 21:00 Montelukast Sodium (Singulair) 10 mg HS 05/26/17 21:00 Morphine Sulfate 6 mg PRN Q1HR PRN 05/26/17 14:30 05/27/17 06:05 6 MG Ropinirole HCl (Requip) 2 mg PRN QHS PRN 05/26/17 08:45 Sertraline HCl (Zoloft) 50 mg DAILY 05/26/17 09:00 05/26/17 13:53 50 MG Sodium Chloride 1,000 ml @ 500 mls/hr 1X ONCE 05/27/17 08:45 05/27/17 10:44 05/27/17 08:12 500 MLS/HR Zolpidem Tartrate (Ambien) 5 mg PRN QHS PRN 05/26/17 08:45 Lab Laboratory Tests Test 05/26/17 09:25 05/26/17 13:35 05/27/17 05:35 Nasal Screen MRSA (PCR) Negative (Negative) Urine Random Creatinine 66.5 mg/dL (Not Estab.) Urine Random Total Protein 21.1 mg/dL (Not Estab.) White Blood Count 19.2 x10^3/uL (4.0-11.0) Red Blood Count 4.83 x10^6/uL (4.30-5.70) Hemoglobin 14.8 g/dL (13.0-17.5) Hematocrit 44.8 % (39.0-53.0) Mean Corpuscular Volume 93 fL (79-100) Mean Corpuscular Hemoglobin 31 pg (25-35) Mean Corpuscular Hemoglobin Concent 33 g/dL (31-37) Red Cell Distribution Width 14.7 % (11.5-14.5) Platelet Count 122 x10^3/uL (140-400) Neutrophils (%) (Auto) 94 % (31-73) Lymphocytes (%) (Auto) 5 % (24-48) Monocytes (%) (Auto) 2 % (0-9) Eosinophils (%) (Auto) 0 % (0-3) Basophils (%) (Auto) 0 % (0-3) Neutrophils # (Auto) 17.9 x10^3uL (1.8-7.7) Lymphocytes # (Auto) 0.9 x10^3/uL (1.0-4.8) Monocytes # (Auto) 0.4 x10^3/uL (0.0-1.1) Eosinophils # (Auto) 0.0 x10^3/uL (0.0-0.7) Basophils # (Auto) 0.0 x10^3/uL (0.0-0.2) Sodium Level 134 mmol/L (136-145) Potassium Level 5.6 mmol/L (3.5-5.1) Chloride Level 102 mmol/L (98-107) Carbon Dioxide Level 21 mmol/L (21-32) Anion Gap 11 (6-14) Blood Urea Nitrogen 95 mg/dL (8-26) Creatinine 1.9 mg/dL (0.7-1.3) Estimated GFR (Cockcroft-Gault) 35.0 BUN/Creatinine Ratio 50 (6-20) Glucose Level 279 mg/dL (70-99) Calcium Level 7.3 mg/dL (8.5-10.1) Phosphorus Level 6.9 mg/dL (2.6-4.7) Magnesium Level 2.6 mg/dL (1.8-2.4) Total Bilirubin 0.4 mg/dL (0.2-1.0) Aspartate Amino Transf (AST/SGOT) 32 U/L (15-37) Alanine Aminotransferase (ALT/SGPT) 57 U/L (16-63) Alkaline Phosphatase 94 U/L (46-116) Total Protein 5.3 g/dL (6.4-8.2) Albumin 1.2 g/dL (3.4-5.0) Albumin/Globulin Ratio 0.3 (1.0-1.7) Lipase 2039 U/L (73-393) NGUYEN HENLEY MD May 27, 2017 09:12
[2017-05-27] MEDS ORDERED: ALBUMIN HUMAN 25% 100 ML IV SCH (10:00)
[2017-05-27] MEDS ORDERED: HYDROCORTISONE SOD SUCC/PF 100 MG/2 ML VIAL. IV SCH (10:00)
--- NOTE | 2017-05-27 10:08 | CONS ---
DATE OF CONSULTATION: 05/26/2017 REFERRING PHYSICIAN: Katrina Herron M.D. 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 He has completed five of ten planned treatments to the whole brain with his last treatment on 05/24/2017 at the [place]. ICD 10 C34.31 C79.70 C79.31 HISTORY OF PRESENT ILLNESS: He now was seen at the [facility] Emergency Room on 05/25/2017 with increasing weakness, shortness of breath and significant abdominal pain. CT scan of the head without contrast at the [facility] Emergency Room on 05/25/2017 revealed 2 low density lesions in the left frontal and left temporal lobes compatible with low density lesion versus edema compatible with metastatic disease. No mass effect or shift was seen. There was a tiny high-density lesion in the right parietal lobe consistent with possible hemorrhagic metastasis. CT scan of the chest revealed a lytic destruction of lesion in the right glenoid, extensive mediastinal adenopathy bilaterally, bulky mass in the right lower lobe with obstruction of the right lower lobe bronchus, collapse of the right lower lobe, pleural effusion, scattered lung nodules, bilateral adrenal nodules, mesenteric streaky density around the pancreas extending to the colon compatible with pancreatitis associated with enlarged edematous pancreas and retroperitoneal adenopathy. LABORATORY STUDIES: Here on admission: Hemoglobin 14.2; white count 21,500 and platelet count 136,000. Chemistry panel revealed a diminished albumin of 1.4, elevated AST 52, ALT 89 and elevated lipase 1500. PAST MEDICAL HISTORY: Remarkable for hypertension, hyperlipidemia, peripheral neuropathy, posttraumatic stress disorder and COPD. Currently complaints ongoing shortness of breath and has difficulty speaking due to shortness of breath and generalized abdominal pain, poorly controlled on his current narcotics. FAMILY HISTORY: Not obtained. MEDICATIONS: See hospital chart. SOCIAL HISTORY: , one son police radio dispatcher living in [place], [place] and one daughter living here in [place]. is here with his both children. 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 Smoked 55 years, 1-2 packs a day. PHYSICAL EXAMINATION: GENERAL: Revealed an elderly gentleman, in some level of distress from abdominal pain and shortness of breath. He was conversant. HEENT: Revealed no scleral icterus. LYMPH NODES: He had no palpable cervical or supraclavicular adenopathy. ABDOMEN: Revealed distention and generalized tenderness. EXTREMITIES: Revealed no clubbing, cyanosis or edema. ASSESSMENT AND PLAN: In summary, my impression is that of progressive stage IV small cell carcinoma of the lung. He had brain metastasis at diagnosis and has been undergoing whole brain radiation. He has no neurologic symptoms. He has symptoms related to progression of disease causing shortness of breath. He has acute pancreatitis. At this time, he is not a candidate for additional treatment for his lung cancer given his overall diminished performance status. We currently recommend comfort measures with optimal pain control and recommended a do not resuscitate status, which the patient and the family agree to and have already acknowledged in the chart. I recommend ongoing palliative care consultation with hospice. If he is stabilized and can be discharged, he may require chronic alf support given his diminished overall status. I reviewed this in detail with the patient and his and children. I reviewed this in general with the patient as well. Thank you for allowing us to participate in his evaluation. Sincerely, COLLETTE MCGILL MD DR: AVRIL/yuri JOB#: [id number] / [id number] EDWIGE Astorga MD, John MD,[facility] DONALD PETERS MD
--- NOTE | 2017-05-27 10:16 | PDOC ---
PULMONARY PROGRESS NOTES Subjective no soa/ confused Vitals Vital Signs Date Time Temp Pulse Resp B/P (MAP) Pulse Ox O2 Delivery O2 Flow Rate FiO2 05/27/17 08:05 Nasal Cannula 4.0 05/27/17 08:01 101 70/42 05/27/17 07:36 97.5 22 91 97.5 General: Lethargic Lungs: Other (rhonchi) Cardiovascular: S1 Abdomen: Soft Extremities: Other (1+edema) Skin: Warm Labs Laboratory Tests Test 05/26/17 07:40 05/26/17 09:25 05/26/17 13:35 05/27/17 03:55 White Blood Count 21.5 x10^3/uL (4.0-11.0) Red Blood Count 4.77 x10^6/uL (4.30-5.70) Hemoglobin 14.2 g/dL (13.0-17.5) Hematocrit 43.9 % (39.0-53.0) Mean Corpuscular Volume 92 fL (79-100) Mean Corpuscular Hemoglobin 30 pg (25-35) Mean Corpuscular Hemoglobin Concent 32 g/dL (31-37) Red Cell Distribution Width 14.7 % (11.5-14.5) Platelet Count 136 x10^3/uL (140-400) Neutrophils (%) (Auto) 97 % (31-73) Lymphocytes (%) (Auto) 2 % (24-48) Monocytes (%) (Auto) 1 % (0-9) Eosinophils (%) (Auto) 0 % (0-3) Basophils (%) (Auto) 0 % (0-3) Neutrophils # (Auto) 20.8 x10^3uL (1.8-7.7) Lymphocytes # (Auto) 0.4 x10^3/uL (1.0-4.8) Monocytes # (Auto) 0.3 x10^3/uL (0.0-1.1) Eosinophils # (Auto) 0.0 x10^3/uL (0.0-0.7) Basophils # (Auto) 0.0 x10^3/uL (0.0-0.2) Segmented Neutrophils % 95 % (35-66) Band Neutrophils % 3 % (0-9) Lymphocytes % 1 % (24-48) Monocytes % 1 % (0-10) Platelet Estimate Adequate (ADEQUATE) Sodium Level 139 mmol/L (136-145) Potassium Level 5.0 mmol/L (3.5-5.1) Chloride Level 105 mmol/L (98-107) Carbon Dioxide Level 25 mmol/L (21-32) Anion Gap 9 (6-14) Blood Urea Nitrogen 84 mg/dL (8-26) Creatinine 1.7 mg/dL (0.7-1.3) Estimated GFR (Cockcroft-Gault) 39.8 BUN/Creatinine Ratio 49 (6-20) Glucose Level 247 mg/dL (70-99) Lactic Acid Level 1.6 mmol/L (0.4-2.0) Calcium Level 6.9 mg/dL (8.5-10.1) Magnesium Level 2.2 mg/dL (1.8-2.4) Total Bilirubin 0.6 mg/dL (0.2-1.0) Aspartate Amino Transf (AST/SGOT) 52 U/L (15-37) Alanine Aminotransferase (ALT/SGPT) 89 U/L (16-63) Alkaline Phosphatase 105 U/L (46-116) Total Protein 5.0 g/dL (6.4-8.2) Albumin 1.4 g/dL (3.4-5.0) Albumin/Globulin Ratio 0.4 (1.0-1.7) Lipase 1500 U/L (73-393) Nasal Screen MRSA (PCR) Negative (Negative) Urine Random Creatinine 66.5 mg/dL (Not Estab.) Urine Random Total Protein 21.1 mg/dL (Not Estab.) Creatine Kinase 48 U/L (39-308) Test 05/27/17 05:35 05/27/17 08:30 White Blood Count 19.2 x10^3/uL (4.0-11.0) Red Blood Count 4.83 x10^6/uL (4.30-5.70) Hemoglobin 14.8 g/dL (13.0-17.5) Hematocrit 44.8 % (39.0-53.0) Mean Corpuscular Volume 93 fL (79-100) Mean Corpuscular Hemoglobin 31 pg (25-35) Mean Corpuscular Hemoglobin Concent 33 g/dL (31-37) Red Cell Distribution Width 14.7 % (11.5-14.5) Platelet Count 122 x10^3/uL (140-400) Neutrophils (%) (Auto) 94 % (31-73) Lymphocytes (%) (Auto) 5 % (24-48) Monocytes (%) (Auto) 2 % (0-9) Eosinophils (%) (Auto) 0 % (0-3) Basophils (%) (Auto) 0 % (0-3) Neutrophils # (Auto) 17.9 x10^3uL (1.8-7.7) Lymphocytes # (Auto) 0.9 x10^3/uL (1.0-4.8) Monocytes # (Auto) 0.4 x10^3/uL (0.0-1.1) Eosinophils # (Auto) 0.0 x10^3/uL (0.0-0.7) Basophils # (Auto) 0.0 x10^3/uL (0.0-0.2) Sodium Level 134 mmol/L (136-145) Potassium Level 5.6 mmol/L (3.5-5.1) Chloride Level 102 mmol/L (98-107) Carbon Dioxide Level 21 mmol/L (21-32) Anion Gap 11 (6-14) Blood Urea Nitrogen 95 mg/dL (8-26) Creatinine 1.9 mg/dL (0.7-1.3) Estimated GFR (Cockcroft-Gault) 35.0 BUN/Creatinine Ratio 50 (6-20) Glucose Level 279 mg/dL (70-99) Calcium Level 7.3 mg/dL (8.5-10.1) Phosphorus Level 6.9 mg/dL (2.6-4.7) Magnesium Level 2.6 mg/dL (1.8-2.4) Total Bilirubin 0.4 mg/dL (0.2-1.0) Aspartate Amino Transf (AST/SGOT) 32 U/L (15-37) Alanine Aminotransferase (ALT/SGPT) 57 U/L (16-63) Alkaline Phosphatase 94 U/L (46-116) Total Protein 5.3 g/dL (6.4-8.2) Albumin 1.2 g/dL (3.4-5.0) Albumin/Globulin Ratio 0.3 (1.0-1.7) Lipase 2039 U/L (73-393) Lactic Acid Level 1.9 mmol/L (0.4-2.0) Laboratory Tests Test 05/26/17 13:35 05/27/17 03:55 05/27/17 05:35 05/27/17 08:30 Urine Random Creatinine 66.5 mg/dL (Not Estab.) Urine Random Total Protein 21.1 mg/dL (Not Estab.) Creatine Kinase 48 U/L (39-308) White Blood Count 19.2 x10^3/uL (4.0-11.0) Red Blood Count 4.83 x10^6/uL (4.30-5.70) Hemoglobin 14.8 g/dL (13.0-17.5) Hematocrit 44.8 % (39.0-53.0) Mean Corpuscular Volume 93 fL (79-100) Mean Corpuscular Hemoglobin 31 pg (25-35) Mean Corpuscular Hemoglobin Concent 33 g/dL (31-37) Red Cell Distribution Width 14.7 % (11.5-14.5) Platelet Count 122 x10^3/uL (140-400) Neutrophils (%) (Auto) 94 % (31-73) Lymphocytes (%) (Auto) 5 % (24-48) Monocytes (%) (Auto) 2 % (0-9) Eosinophils (%) (Auto) 0 % (0-3) Basophils (%) (Auto) 0 % (0-3) Neutrophils # (Auto) 17.9 x10^3uL (1.8-7.7) Lymphocytes # (Auto) 0.9 x10^3/uL (1.0-4.8) Monocytes # (Auto) 0.4 x10^3/uL (0.0-1.1) Eosinophils # (Auto) 0.0 x10^3/uL (0.0-0.7) Basophils # (Auto) 0.0 x10^3/uL (0.0-0.2) Sodium Level 134 mmol/L (136-145) Potassium Level 5.6 mmol/L (3.5-5.1) Chloride Level 102 mmol/L (98-107) Carbon Dioxide Level 21 mmol/L (21-32) Anion Gap 11 (6-14) Blood Urea Nitrogen 95 mg/dL (8-26) Creatinine 1.9 mg/dL (0.7-1.3) Estimated GFR (Cockcroft-Gault) 35.0 BUN/Creatinine Ratio 50 (6-20) Glucose Level 279 mg/dL (70-99) Calcium Level 7.3 mg/dL (8.5-10.1) Phosphorus Level 6.9 mg/dL (2.6-4.7) Magnesium Level 2.6 mg/dL (1.8-2.4) Total Bilirubin 0.4 mg/dL (0.2-1.0) Aspartate Amino Transf (AST/SGOT) 32 U/L (15-37) Alanine Aminotransferase (ALT/SGPT) 57 U/L (16-63) Alkaline Phosphatase 94 U/L (46-116) Total Protein 5.3 g/dL (6.4-8.2) Albumin 1.2 g/dL (3.4-5.0) Albumin/Globulin Ratio 0.3 (1.0-1.7) Lipase 2039 U/L (73-393) Lactic Acid Level 1.9 mmol/L (0.4-2.0) Medications Active Scripts Medications Dose Route/Sig Max Daily Dose Days Date Category Eliquis (Apixaban) 5 Mg Tablet 5 Mg PO BID 60 04/08/17 Rx Cardizem Cd (Diltiazem Hcl) 180 Mg Cap.er.24h 1 Cap PO DAILY 04/08/17 Rx Fish Oil 1,000 Mg Capsule (Vaughn-3 Fatty Acids/Fish Oil) 1 Each Capsule 1 Each PO 04/05/17 Reported Aspirin 325 Mg Tablet 325 Mg PO HS 04/05/17 Reported Zolpidem Tartrate 5 Mg Tablet 5 Mg PO PRN QHS PRN 04/05/17 Reported Alprazolam 0.5 Mg Tablet 0.5 Mg PO PRN Q6HRS PRN 04/05/17 Reported Zoloft (Sertraline Hcl) 50 Mg Tablet 50 Mg PO DAILY 04/05/17 Reported Requip (Ropinirole Hcl) 1 Mg Tablet 2 Mg PO HS PRN 04/05/17 Reported Singulair Tablet (Montelukast Sodium) 10 Mg Tablet 10 Mg PO HS 04/05/17 Reported Mirtazapine 30 Mg Tablet 30 Mg PO DAILY 04/05/17 Reported Lisinopril 40 Mg Tablet 40 Mg PO DAILY 9/27/17 Reported Clonazepam 0.5 Mg Tablet 1 Tab PO DAILY 04/05/17 Reported Atorvastatin Calcium 20 Mg Tablet 20 Mg PO HS 04/05/17 Reported Impression . 1. Acute hypoxic respiratory failure secondary to multifactorial etiologies including combination of postobstructive pneumonia with large infrahilar mass. Small to moderate pleural effusion could be related to malignancy and also abdominal pain and underlying chronic obstructive pulmonary disease. 2. Stage 4 lung cancer diagnosed recently at the [facility] with brain metastasis, status post cranial radiation, but has not had any chemo or radiation to the chest. 3. Abnormal CT chest with large right infrahilar mass with postobstructive collapse of the right lower lobe and a small to moderate pleural effusion. There is also evidence of pancreatitis. There is extensive retroperitoneal and pelvic lymphadenopathy. We may be dealing with another malignancy. I will follow Dr. Nam's recommendation. 4. Underlying chronic obstructive pulmonary disease. 5. Increased lipase secondary to pancreatitis. Plan . 1. Continue with present oxygen. 2. Broad-spectrum antibiotics. 3. Follow white cell count. 4. Follow Oncology recommendations. 5. Follow Radiation/Oncology recommendation. 6. Follow renal recommendation. The patient's BUN and creatinine was markedly elevated. 7. Continue supportive care. 8. Follow lipase levels. 9. The patient is a DNR. d/w Dr Gann I recommend palliative care consult EDWIGE HOLT MD May 27, 2017 10:16
--- NOTE | 2017-05-27 10:54 | PDOC ---
PROGRESS NOTES Chief Complaint Chief Complaint Acute hypoxic respir failure Sepsis ASSESSMENT AND PLAN: 1. Post obstructive PNA: on merrem, vanco 2. Sepsis; severe hypotension, not responsive to IVF 3. MICHAEL: 2/2 above 4. Hypokalemia: sl improved. d/w Dr Tenorio 5. 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 Hypoalbuminemia: severe, with contributing factors of inflammation, renal dz, malnutrition 7. Dysphagia: failed swallow study Family discussion re further treatment plans: under current circumstances, unanimous decision to make pt comfort care only. stop all other meds. oral intake as desired. History of Present Illness History of Present Illness feels poorly, no CP or SOB. wants something to drink. Vitals Vitals Vital Signs Date Time Temp Pulse Resp B/P (MAP) Pulse Ox O2 Delivery O2 Flow Rate FiO2 05/27/17 08:01 101 70/42 05/27/17 07:36 97.5 22 91 Nasal Cannula 4.0 97.5 Physical Exam General: Alert, Oriented X3, Cooperative, mild distress Heart: Regular rate Lungs: Other (rhonchi) Abdomen: Normal bowel sounds, Soft Extremities: No clubbing, Other (1-2+ an[place]) Skin: No rashes Labs LABS Laboratory Tests Test 05/26/17 09:25 05/26/17 13:35 05/27/17 05:35 05/27/17 08:30 Nasal Screen MRSA (PCR) Negative (Negative) Urine Random Creatinine 66.5 mg/dL (Not Estab.) Urine Random Total Protein 21.1 mg/dL (Not Estab.) White Blood Count 19.2 x10^3/uL (4.0-11.0) Red Blood Count 4.83 x10^6/uL (4.30-5.70) Hemoglobin 14.8 g/dL (13.0-17.5) Hematocrit 44.8 % (39.0-53.0) Mean Corpuscular Volume 93 fL (79-100) Mean Corpuscular Hemoglobin 31 pg (25-35) Mean Corpuscular Hemoglobin Concent 33 g/dL (31-37) Red Cell Distribution Width 14.7 % (11.5-14.5) Platelet Count 122 x10^3/uL (140-400) Neutrophils (%) (Auto) 94 % (31-73) Lymphocytes (%) (Auto) 5 % (24-48) Monocytes (%) (Auto) 2 % (0-9) Eosinophils (%) (Auto) 0 % (0-3) Basophils (%) (Auto) 0 % (0-3) Neutrophils # (Auto) 17.9 x10^3uL (1.8-7.7) Lymphocytes # (Auto) 0.9 x10^3/uL (1.0-4.8) Monocytes # (Auto) 0.4 x10^3/uL (0.0-1.1) Eosinophils # (Auto) 0.0 x10^3/uL (0.0-0.7) Basophils # (Auto) 0.0 x10^3/uL (0.0-0.2) Sodium Level 134 mmol/L (136-145) Potassium Level 5.6 mmol/L (3.5-5.1) Chloride Level 102 mmol/L (98-107) Carbon Dioxide Level 21 mmol/L (21-32) Anion Gap 11 (6-14) Blood Urea Nitrogen 95 mg/dL (8-26) Creatinine 1.9 mg/dL (0.7-1.3) Estimated GFR (Cockcroft-Gault) 35.0 BUN/Creatinine Ratio 50 (6-20) Glucose Level 279 mg/dL (70-99) Calcium Level 7.3 mg/dL (8.5-10.1) Phosphorus Level 6.9 mg/dL (2.6-4.7) Magnesium Level 2.6 mg/dL (1.8-2.4) Total Bilirubin 0.4 mg/dL (0.2-1.0) Aspartate Amino Transf (AST/SGOT) 32 U/L (15-37) Alanine Aminotransferase (ALT/SGPT) 57 U/L (16-63) Alkaline Phosphatase 94 U/L (46-116) Total Protein 5.3 g/dL (6.4-8.2) Albumin 1.2 g/dL (3.4-5.0) Albumin/Globulin Ratio 0.3 (1.0-1.7) Lipase 2039 U/L (73-393) Lactic Acid Level 1.9 mmol/L (0.4-2.0) TUSHAR KAY MD May 27, 2017 10:54
[2017-05-27 10:57] VITALS: BP 88/51
--- NOTE | 2017-05-27 14:05 | PDOC ---
G I PROGRESS NOTE Reason for Follow-up Pancreatitis/lung cancer Subjective Hospice requested with comfort measures Physical Exam Lungs decreased BS CV S1 S2 ABD hypoactive BS, soft Review of Relevant I have reviewed the following items fang (where applicable) has been applied. Labs Laboratory Tests Test 05/26/17 07:40 05/26/17 09:25 05/26/17 13:35 05/27/17 03:55 White Blood Count 21.5 x10^3/uL (4.0-11.0) Red Blood Count 4.77 x10^6/uL (4.30-5.70) Hemoglobin 14.2 g/dL (13.0-17.5) Hematocrit 43.9 % (39.0-53.0) Mean Corpuscular Volume 92 fL (79-100) Mean Corpuscular Hemoglobin 30 pg (25-35) Mean Corpuscular Hemoglobin Concent 32 g/dL (31-37) Red Cell Distribution Width 14.7 % (11.5-14.5) Platelet Count 136 x10^3/uL (140-400) Neutrophils (%) (Auto) 97 % (31-73) Lymphocytes (%) (Auto) 2 % (24-48) Monocytes (%) (Auto) 1 % (0-9) Eosinophils (%) (Auto) 0 % (0-3) Basophils (%) (Auto) 0 % (0-3) Neutrophils # (Auto) 20.8 x10^3uL (1.8-7.7) Lymphocytes # (Auto) 0.4 x10^3/uL (1.0-4.8) Monocytes # (Auto) 0.3 x10^3/uL (0.0-1.1) Eosinophils # (Auto) 0.0 x10^3/uL (0.0-0.7) Basophils # (Auto) 0.0 x10^3/uL (0.0-0.2) Segmented Neutrophils % 95 % (35-66) Band Neutrophils % 3 % (0-9) Lymphocytes % 1 % (24-48) Monocytes % 1 % (0-10) Platelet Estimate Adequate (ADEQUATE) Sodium Level 139 mmol/L (136-145) Potassium Level 5.0 mmol/L (3.5-5.1) Chloride Level 105 mmol/L (98-107) Carbon Dioxide Level 25 mmol/L (21-32) Anion Gap 9 (6-14) Blood Urea Nitrogen 84 mg/dL (8-26) Creatinine 1.7 mg/dL (0.7-1.3) Estimated GFR (Cockcroft-Gault) 39.8 BUN/Creatinine Ratio 49 (6-20) Glucose Level 247 mg/dL (70-99) Lactic Acid Level 1.6 mmol/L (0.4-2.0) Calcium Level 6.9 mg/dL (8.5-10.1) Magnesium Level 2.2 mg/dL (1.8-2.4) Total Bilirubin 0.6 mg/dL (0.2-1.0) Aspartate Amino Transf (AST/SGOT) 52 U/L (15-37) Alanine Aminotransferase (ALT/SGPT) 89 U/L (16-63) Alkaline Phosphatase 105 U/L (46-116) Total Protein 5.0 g/dL (6.4-8.2) Albumin 1.4 g/dL (3.4-5.0) Albumin/Globulin Ratio 0.4 (1.0-1.7) Lipase 1500 U/L (73-393) Nasal Screen MRSA (PCR) Negative (Negative) Urine Random Creatinine 66.5 mg/dL (Not Estab.) Urine Random Total Protein 21.1 mg/dL (Not Estab.) Creatine Kinase 48 U/L (39-308) Test 05/27/17 05:35 05/27/17 08:30 White Blood Count 19.2 x10^3/uL (4.0-11.0) Red Blood Count 4.83 x10^6/uL (4.30-5.70) Hemoglobin 14.8 g/dL (13.0-17.5) Hematocrit 44.8 % (39.0-53.0) Mean Corpuscular Volume 93 fL (79-100) Mean Corpuscular Hemoglobin 31 pg (25-35) Mean Corpuscular Hemoglobin Concent 33 g/dL (31-37) Red Cell Distribution Width 14.7 % (11.5-14.5) Platelet Count 122 x10^3/uL (140-400) Neutrophils (%) (Auto) 94 % (31-73) Lymphocytes (%) (Auto) 5 % (24-48) Monocytes (%) (Auto) 2 % (0-9) Eosinophils (%) (Auto) 0 % (0-3) Basophils (%) (Auto) 0 % (0-3) Neutrophils # (Auto) 17.9 x10^3uL (1.8-7.7) Lymphocytes # (Auto) 0.9 x10^3/uL (1.0-4.8) Monocytes # (Auto) 0.4 x10^3/uL (0.0-1.1) Eosinophils # (Auto) 0.0 x10^3/uL (0.0-0.7) Basophils # (Auto) 0.0 x10^3/uL (0.0-0.2) Sodium Level 134 mmol/L (136-145) Potassium Level 5.6 mmol/L (3.5-5.1) Chloride Level 102 mmol/L (98-107) Carbon Dioxide Level 21 mmol/L (21-32) Anion Gap 11 (6-14) Blood Urea Nitrogen 95 mg/dL (8-26) Creatinine 1.9 mg/dL (0.7-1.3) Estimated GFR (Cockcroft-Gault) 35.0 BUN/Creatinine Ratio 50 (6-20) Glucose Level 279 mg/dL (70-99) Calcium Level 7.3 mg/dL (8.5-10.1) Phosphorus Level 6.9 mg/dL (2.6-4.7) Magnesium Level 2.6 mg/dL (1.8-2.4) Total Bilirubin 0.4 mg/dL (0.2-1.0) Aspartate Amino Transf (AST/SGOT) 32 U/L (15-37) Alanine Aminotransferase (ALT/SGPT) 57 U/L (16-63) Alkaline Phosphatase 94 U/L (46-116) Total Protein 5.3 g/dL (6.4-8.2) Albumin 1.2 g/dL (3.4-5.0) Albumin/Globulin Ratio 0.3 (1.0-1.7) Lipase 2039 U/L (73-393) Lactic Acid Level 1.9 mmol/L (0.4-2.0) Laboratory Tests Test 05/27/17 03:55 05/27/17 05:35 05/27/17 08:30 Creatine Kinase 48 U/L (39-308) White Blood Count 19.2 x10^3/uL (4.0-11.0) Red Blood Count 4.83 x10^6/uL (4.30-5.70) Hemoglobin 14.8 g/dL (13.0-17.5) Hematocrit 44.8 % (39.0-53.0) Mean Corpuscular Volume 93 fL (79-100) Mean Corpuscular Hemoglobin 31 pg (25-35) Mean Corpuscular Hemoglobin Concent 33 g/dL (31-37) Red Cell Distribution Width 14.7 % (11.5-14.5) Platelet Count 122 x10^3/uL (140-400) Neutrophils (%) (Auto) 94 % (31-73) Lymphocytes (%) (Auto) 5 % (24-48) Monocytes (%) (Auto) 2 % (0-9) Eosinophils (%) (Auto) 0 % (0-3) Basophils (%) (Auto) 0 % (0-3) Neutrophils # (Auto) 17.9 x10^3uL (1.8-7.7) Lymphocytes # (Auto) 0.9 x10^3/uL (1.0-4.8) Monocytes # (Auto) 0.4 x10^3/uL (0.0-1.1) Eosinophils # (Auto) 0.0 x10^3/uL (0.0-0.7) Basophils # (Auto) 0.0 x10^3/uL (0.0-0.2) Sodium Level 134 mmol/L (136-145) Potassium Level 5.6 mmol/L (3.5-5.1) Chloride Level 102 mmol/L (98-107) Carbon Dioxide Level 21 mmol/L (21-32) Anion Gap 11 (6-14) Blood Urea Nitrogen 95 mg/dL (8-26) Creatinine 1.9 mg/dL (0.7-1.3) Estimated GFR (Cockcroft-Gault) 35.0 BUN/Creatinine Ratio 50 (6-20) Glucose Level 279 mg/dL (70-99) Calcium Level 7.3 mg/dL (8.5-10.1) Phosphorus Level 6.9 mg/dL (2.6-4.7) Magnesium Level 2.6 mg/dL (1.8-2.4) Total Bilirubin 0.4 mg/dL (0.2-1.0) Aspartate Amino Transf (AST/SGOT) 32 U/L (15-37) Alanine Aminotransferase (ALT/SGPT) 57 U/L (16-63) Alkaline Phosphatase 94 U/L (46-116) Total Protein 5.3 g/dL (6.4-8.2) Albumin 1.2 g/dL (3.4-5.0) Albumin/Globulin Ratio 0.3 (1.0-1.7) Lipase 2039 U/L (73-393) Lactic Acid Level 1.9 mmol/L (0.4-2.0) Medications Current Medications Sodium Chloride 1,000 ml @ 50 mls/hr Q20H IV Last administered on 05/26/17 17:36; Start 05/26/17 at 07:00; Stop 05/27/17 at 10:48; Status DC Sodium Chloride 1,000 ml @ 1,000 mls/hr 1X ONCE IV Last administered on 05/26 05:30; Start 05/26/17 at 06:00; Stop 05/26/17 at 06:59; Status DC Morphine Sulfate 4 mg PRN Q2HR PRN IV PAIN Last administered on 05/26/17 20: 54; Start 05/26/17 at 05:45 Meropenem 500 mg/ Sodium Chloride 50 ml @ 100 mls/hr Q6HRS IV ; Start at 08:00; Status UNV Linezolid 300 ml @ 300 mls/hr Q12HR IV Last administered on 05/26/17 11:26; Start 05/26/17 at 09:00; Stop 05/26/17 at 15:51; Status DC Fluconazole/ Sodium Chloride 100 ml @ 100 mls/hr Q24H IV Last administered on 05/27/17 08:13; Start 05/26/17 at 08:00; Stop 05/27/17 at 10:48; Status DC Meropenem (Merrem) 500 mg Q6HRS IVP Last administered on 05/27/17 06:00; Start 05/26/17 at 08:00; Stop 05/27/17 at 10:48; Status DC Alprazolam (Xanax) 0.5 mg PRN Q6HRS PRN PO ANXIETY / AGITATION; Start at 08:45 Apixaban (Eliquis) 5 mg BID PO ; Start 05/26/17 at 09:00; Stop 05/27/17 at 10: 48; Status DC Aspirin (Shiela Aspirin) 325 mg HS PO ; Start 05/26/17 at 21:00; Stop 05/27/17 at 10:48; Status DC Atorvastatin Calcium (Lipitor) 20 mg HS PO ; Start 05/26/17 at 21:00; Stop at 10:48; Status DC Clonazepam (KlonoPIN) 0.5 mg DAILY PO ; Start 05/26/17 at 09:00; Stop at 10:48; Status DC Diltiazem HCl (Cardizem 24hr Cd) 180 mg DAILY PO Last administered on t 11:22; Start 05/26/17 at 09:00; Stop 05/27/17 at 10:48; Status DC Montelukast Sodium (Singulair) 10 mg HS PO ; Start 05/26/17 at 21:00; Stop at 10:48; Status DC Ropinirole HCl (Requip) 2 mg PRN QHS PRN PO RESTLESS LEGS; Start 05/26/17 at 08:45; Stop 05/27/17 at 10:48; Status DC Sertraline HCl (Zoloft) 50 mg DAILY PO Last administered on 05/26/17t 13:53; Start 05/26/17 at 09:00; Stop 05/27/17 at 10:48; Status DC Zolpidem Tartrate (Ambien) 5 mg PRN QHS PRN PO INSOMNIA; Start 05/26/17 at 08: 45; Stop 05/27/17 at 10:48; Status DC Mirtazapine (Remeron) 30 mg QHS PO ; Start 05/26/17 at 21:00; Stop 05/27/17 at 10:48; Status DC Amino Acids/ Glycerin/ Electrolytes 1,000 ml @ 80 mls/hr [id number] IV Last administered on 05/27/17 00:25; Start 05/26/17 at 12:00; Stop 05/27/17 at 10 :48; Status DC Info (Anti-Coagulation Monitoring By Pharmacy) 1 each PRN DAILY PRN MC SEE COMMENTS Last administered on 05/26/17 13:46; Start 05/26/17 at 13:45; Stop 05/27/17 at 10:48; Status DC Fentanyl (Duragesic 25mcg/ Hr Patch) 1 patch Q3DAYS TD Last administered on 14:54; Start 05/26/17 at 15:00 Morphine Sulfate 6 mg PRN Q1HR PRN IV SEVERE PAIN Last administered on 13:23; Start 05/26/17 at 14:30 Linezolid 300 ml @ 300 mls/hr Q12HR IV Last administered on 05/27/17 09:05; Start 05/26/17 at 21:00; Stop 05/27/17 at 10:48; Status DC Sodium Chloride 1,000 ml @ 500 mls/hr 1X ONCE IV Last administered on 08:12; Start 05/27/17 at 08:45; Stop 05/27/17 at 10:44; Status DC Albumin Human 100 ml @ 100 mls/hr TID IV Last administered on 05/27/17 10:07 ; Start 05/27/17 at 10:00; Stop 05/27/17 at 10:48; Status DC Sodium Chloride 500 ml @ 0 mls/hr QID PRN IV UO< 30cc/hr over previous 6hrs; Start 05/27/17 at 09:00; Stop 05/27/17 at 10:48; Status DC Hydrocortisone Sodium Succinate (Solu-CORTEF) 100 mg Q8HRS IV Last administered on 05/27/17 10:07; Start 05/27/17 at 10:00; Stop 05/27/17 at 10 :48; Status DC Lorazepam (Ativan) 0.5 mg PRN Q2HRS PRN IV ANXIETY / AGITATION; Start at 10:45 Active Scripts Active Eliquis (Apixaban) 5 Mg Tablet 5 Mg PO BID 60 Days Cardizem Cd (Diltiazem Hcl) 180 Mg Cap.er.24h 1 Cap PO DAILY Reported Fish Oil 1,000 Mg Capsule ([place]-3 Fatty Acids/Fish Oil) 1 Each Capsule 1 Each PO Aspirin 325 Mg Tablet 325 Mg PO HS Zolpidem Tartrate 5 Mg Tablet 5 Mg PO PRN QHS PRN Alprazolam 0.5 Mg Tablet 0.5 Mg PO PRN Q6HRS PRN Zoloft (Sertraline Hcl) 50 Mg Tablet 50 Mg PO DAILY Requip (Ropinirole Hcl) 1 Mg Tablet 2 Mg PO HS PRN Singulair Tablet (Montelukast Sodium) 10 Mg Tablet 10 Mg PO HS Mirtazapine 30 Mg Tablet 30 Mg PO DAILY Lisinopril 40 Mg Tablet 40 Mg PO DAILY Clonazepam 0.5 Mg Tablet 1 Tab PO DAILY Atorvastatin Calcium 20 Mg Tablet 20 Mg PO HS Vitals/I & O Vital Sign - Last 24 Hours 05/26/17 05/26/17 05/26/17 05/26/17 14:24 14:54 15:00 16:27 Temp 97.8 97.8 Pulse 98 Resp 18 20 B/P (MAP) 116/73 (87) Pulse Ox 91 91 92 92 O2 Delivery Nasal Cannula Nasal Cannula Nasal Cannula Nasal Cannula O2 Flow Rate 4.0 4.0 4.0 4.0 05/26/17 05/26/17 05/26/17 05/26/17 17:29 17:35 20:10 20:40 Temp 97.8 97.4 97.8 97.4 Pulse 107 95 Resp 20 B/P (MAP) 112/78 (89) 115/65 (82) Pulse Ox 88 88 89 O2 Delivery Nasal Cannula Nasal Cannula Nasal Cannula Nasal Cannula O2 Flow Rate 4.0 4.0 4.0 4.0 05/26/17 05/27/17 05/27/17 05/27/17 23:50 03:00 07:36 08:01 Temp 97.6 98.2 97.5 97.6 98.2 97.5 Pulse 97 100 101 101 Resp 20 22 B/P (MAP) 104/52 (69) 120/74 (89) 78/50 (59) 70/42 Pulse Ox 91 89 91 O2 Delivery Nasal Cannula Nasal Cannula Nasal Cannula O2 Flow Rate 4.0 4.0 4.0 05/27/17 05/27/17 05/27/17 08:05 10:57 13:23 Temp 97.7 97.7 Pulse 95 Resp 16 B/P (MAP) 88/51 (63) Pulse Ox 92 92 O2 Delivery Nasal Cannula Nasal Cannula Nasal Cannula O2 Flow Rate 4.0 4.0 4.0 Intake and Output 05/26/17 05/26/17 05/27/17 15:00 23:00 07:00 Intake Total 1360 ml 275 ml 0 ml Output Total 1250 ml 340 ml Balance 110 ml 275 ml -340 ml Problem List Pancreatitis- with metastatic lung cancer, palliative care/hospice recommended, no additional recommendations at this time. Available if further problems should arise. DAY HORNE MD May 27, 2017 14:05
[2017-05-27 19:00] VITALS: BP 63/38
[2017-05-28] MEDS: MORPHINE SULFATE 10 MG/ML VIAL. IV PRN (00:25)
--- NOTE | 2017-06-22 09:17 | PDOC3 ---
Discharge Summary Visit Information Date of Admission: May 26, 2017 Date of Discharge: May 28, 2017 Admitting Diagnosis: sepsis Final Diagnosis Acute hypoxic respir failure Sepsis 1. Post obstructive PNA: was on merrem, vanco 2. Sepsis; severe hypotension, not responsive to IVF 3. Acute vasomotor nephropathy, possible ATN 4. Hypokalemia: 5. 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 Hypoalbuminemia: severe, with contributing factors of inflammation, renal dz, malnutrition 7. Dysphagia: failed swallow study 8. 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 Brief Hospital Course Allergies Allergies Coded Allergies Type Severity Reaction Last Updated Verified Penicillins Allergy Severe 04/04/17 Yes bupropion Allergy Intermediate RESTLESS LEG 04/05/17 Yes buspirone Allergy Intermediate RESTLESS LEG 04/05/17 Yes escitalopram Allergy Intermediate RESTLESS LEG 04/05/17 Yes fluoxetine Allergy Intermediate RESTLESS LEG 04/07/17 Yes fluticasone Allergy Intermediate RESTLESS LEG 04/05/17 Yes mirtazapine Allergy Intermediate RESTLESS LEG 04/05/17 Yes nortriptyline Allergy Intermediate RESTLESS LEG 04/05/17 Yes olanzapine Allergy Intermediate RESTLESS LEG 04/07/17 Yes oxycodone Allergy Intermediate RESTLESS LEG 04/05/17 Yes paroxetine Allergy Intermediate RESTLESS LEG 04/05/17 Yes sertraline Allergy Intermediate RESTLESS LEG 04/05/17 Yes venlafaxine Allergy Intermediate RESTLESS LEG 04/05/17 Yes Brief Hospital Course Mr. Kohli is a 71 old admit with sepsis and pneumonia, Family discussion re further treatment plans: Dr. Nam, Dr. Gann, Dr Enriquez, under current circumstances, unanimous decision to make pt comfort care only. stopped all other meds. oral intake as desired comfort on 05/27, pt 05/28 02:30 Discharge Information Disposition/Orders: Scheduled Apixaban (Eliquis), 5 MG PO BID Aspirin (Aspirin), 325 MG PO HS, (Reported) Atorvastatin Calcium (Atorvastatin Calcium), 20 MG PO HS, (Reported) Clonazepam (Clonazepam), 1 TAB PO DAILY, (Reported) Diltiazem Hcl (Cardizem Cd), 1 CAP PO DAILY Lisinopril (Lisinopril), 40 MG PO DAILY, (Reported) Mirtazapine (Mirtazapine), 30 MG PO DAILY, (Reported) Montelukast Sodium (Singulair Tablet), 10 MG PO HS, (Reported) Sertraline Hcl (Zoloft), 50 MG PO DAILY, (Reported) Scheduled PRN Alprazolam (Alprazolam), 0.5 MG PO PRN Q6HRS PRN for ANXIETY / AGITATION, ( Reported) Ropinirole Hcl (Requip), 2 MG PO HS PRN for RESTLESS LEGS, (Reported) Zolpidem Tartrate (Zolpidem Tartrate), 5 MG PO PRN QHS PRN for INSOMNIA, ( Reported) Miscellaneous Medications [place]-3 Fatty Acids/Fish Oil (Fish Oil 1,000 Mg Capsule), 1 EACH PO, (Reported) Patient Instructions Patient Instructions < 30 min SHARMILA PEREA MD Jun 22, 2017 09:17
== END 2017-05-28 02:40 | disposition expired | DRG 871 ==
LOC: 1 WEST ICU 04:47 → 6 SOUTH 17:20
PROVIDERS: ADMIT Internal Medicine; ATTEND Internal Medicine
DX: A41.9 Sepsis, unspecified organism (principal); E43 Unspecified severe protein-calorie malnutrition; J96.01 Acute respiratory failure with hypoxia; N17.0 Acute kidney failure with tubular necrosis; J18.9 Pneumonia, unspecified organism; C79.31 Secondary malignant neoplasm of brain; J90 Pleural effusion, not elsewhere classified; C79.70 Secondary malignant neoplasm of unspecified adrenal gland; E27.8 Other specified disorders of adrenal gland; K85.90 Acute pancreatitis without necrosis or infection, unspecified; C34.91 Malignant neoplasm of unspecified part of right bronchus or lung; K57.92 Diverticulitis of intestine, part unspecified, without perforation or abscess without bleeding; D69.6 Thrombocytopenia, unspecified; E11.42 Type 2 diabetes mellitus with diabetic polyneuropathy; Z68.29 Body mass index [BMI] 29.0-29.9, adult; E78.00 Pure hypercholesterolemia, unspecified; E78.5 Hyperlipidemia, unspecified; E86.0 Dehydration; E87.5 Hyperkalemia; E87.6 Hypokalemia; F32.9 Major depressive disorder, single episode, unspecified; F43.10 Post-traumatic stress disorder, unspecified; M19.90 Unspecified osteoarthritis, unspecified site; Z79.4 Long term (current) use of insulin; I10 Essential (primary) hypertension; I48.0 Paroxysmal atrial fibrillation; J43.9 Emphysema, unspecified; K63.5 Polyp of colon; R65.20 Severe sepsis without septic shock; Z51.5 Encounter for palliative care; Z66 Do not resuscitate; Z82.49 Family history of ischemic heart disease and other diseases of the circulatory system; Z85.118 Personal history of other malignant neoplasm of bronchus and lung; Z87.891 Personal history of nicotine dependence; Z88.1 Allergy status to other antibiotic agents; Z92.3 Personal history of irradiation; Z88.6 Allergy status to analgesic agent; Z88.0 Allergy status to penicillin; Z88.8 Allergy status to other drugs, medicaments and biological substances
CPT/HCPCS: 36415; 76705; 80053; 82550; 82570; 83605; 83690; 83735; 84100; 84156; 85007; 85025; 87040; 87641; J1450; J1720; J2020; J2060; J2185; J2270; J7030; P9046